=== PATIENT | male | born 1965 | race Caucasian/White ===

== ENCOUNTER 2018-03-11 12:09 | Inpatient (IN) ==
[2018-03-11] MEDS ORDERED: Ondansetron 4 MG/2 ML VIAL IVP ONE (12:23)
[2018-03-11] MEDS ORDERED: 0.9 % Sodium Chloride 1,000 ML IVC ONE (12:23)
[2018-03-11] MEDS ORDERED: Isovue-370 500 ML BOTTLE IVP ONE (12:23)
[2018-03-11] MEDS ORDERED: *HR* HYDROmorphone (PF) 1 MG/ML SYRINGE IVP ONE ×2 (12:23→13:56)
--- NOTE | 2018-03-11 12:28 | Emergency Department Note ---
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 Neutropenia Qualifiers: Neutropenia type: unspecified Qualified Code(s): D70.9 - Neutropenia, unspecified Disposition: Admitted As Inpatient Condition: Good Referrals: NONE,PCP [Primary Care Provider] - Time of Disposition: 13:55 General Adult HPI - General Stated complaint: Multiple complaints Time Seen by Provider: 03/11/18 12:18 Source: patient, family, EMS Mode of arrival: EMS Limitations: no limitations Nursing Notes Reviewed: Yes Vital Signs Reviewed: Yes - History of Present Illness HPI Narrative: 52 year old male [facility] Faj[facility]. Kimberly is currenlty being treated with chemotherapy for mestatic prostate cancer and states that he has not been able to drink or eat anything int he past 48 hours and that he feels incresingly more dehydrated. Kimberly states that his chemotherapy is not working ant that his cancer doctor sent him here for admission for pain crisis, and palliative care consult as they have been trying to get his pain crisis under control with pain management Dr. Harrell and it has not been helping. Kimberly is experingin adomianl swelling and pain over the one month and states that he was told it was likely his liver failing per his cancer doctor. Kimberly does not appear jaundiced at this time. He does however appear dehydrated and last urinated yesterday. No fvers, vomitting .but he has been experincing nausea. - Related Data Home Medications Medication Instructions Recorded Confirmed Cyanocobalamin (B-12) [Vitamin B12] 1,000 mcg IM QMONTH 08/31/17 03/10/18 OxyCODONE Immed Rel [Roxicodone 30 30 mg PO QID PRN 08/31/17 03/10/18 MG] Sennosides/Docusate Sodium [Stool 1 each PO DAILY 09/10/17 03/10/18 Softener Tablet] Previous Rx's Medication Instructions Recorded Ferrous Sulfate [Iron] 1 tab PO DAILY #30 tablet 03/27/17 Megestrol Acetate [Megace] 10 ml PO BID #400 mls 07/19/17 Albuterol Neb [AccuNeb] 1.25 mg IH BID #60 inhsol 10/29/17 Dexamethasone [Decadron] 2 tab PO BID #60 tab 10/29/17 Spironolactone [Aldactone] 25 mg PO DAILY #30 tablet 10/29/17 Bed - Hospital [Hospital Bed] 1 each .ROUTE AD #1 each 11/27/17 Supplies [SUPPLIES] 1 each .ROUTE DAILY #1 each 12/23/17 Supplies [SUPPLIES] 1 each .ROUTE DAILY #1 each 12/23/17 Prochlorperazine Maleate 10 mg PO Q6H PRN #30 tablet 02/06/18 [Compazine] Tamsulosin [Flomax] 1 tab PO BID #60 cap.er.24h 02/07/18 Apixaban [Eliquis] 5 mg PO BID #60 tablet 02/10/18 Ciprofloxacin [Cipro] 500 mg PO BID #10 tablet 03/03/18 Furosemide [Lasix] 40 mg PO DAILY #30 tablet 03/03/18 Omeprazole [PriLOSEC] 20 mg PO BIDAC #60 cap 03/03/18 Potassium Chloride 20 meq PO DAILY #30 tab.er.prt 03/03/18 metroNIDAZOLE [Flagyl] 500 mg PO TID #15 tablet 03/03/18 Dronabinol [Marinol] 5 mg PO BID 7 Days #14 capsule 03/10/18 Allergies Allergy/AdvReac Type Severity Reaction Status Date / Time No Known Allergies Allergy Verified 03/10/18 11:46 Constitutional: Reports: weakness. Denies: fever, chills, weight change Eyes: Denies: eye pain, eye discharge, vision change ENT ED: Denies: ear pain, throat pain, dental pain, hearing loss, epistaxis, congestion, dysphagia Cardiovascular: Denies: chest pain, palpitations, dyspnea on exertion, edema, syncope Respiratory: Denies: cough, dyspnea, wheezes, hemoptysis, stridor Gastrointestinal: Reports: abdominal pain, nausea. Denies: vomiting, diarrhea, constipation, hematemesis, melena, hematochezia Genitourinary: Denies: urgency, dysuria, frequency, hematuria Musculoskeletal: Denies: back pain, neck pain, arthralgia, myalgia Integumentary: Denies: rash, abrasion, lesions Neurological: Denies: headache, weakness, numbness, paresthesias, confusion, abnormal gait, vertigo Psychiatric: Denies: anxiety, depression, suicidal thoughts, homicidal thoughts, auditory hallucinations, visual hallucinations Endocrine: Denies: fatigue Hematological/Lymphatic: Denies: easy bleeding, easy bruising Allergic/Immunologic: Denies: facial swelling, urticaria Past Medical History - Past Medical History Medical history: Reports: cancer Surgical history: Reports: non-contributory Psychiatric history: Reports: no psych history - Social History Smoking Status: Current every day smoker Smokeless Tobacco Status: No Alcohol use: Reports: none Drug use: Reports: none Physical Exam - General Limitations: no limitations General appearance: alert, in no apparent distress - Head Head exam: atraumatic, normocephalic, normal inspection - Eye Eye exam: Present: normal appearance, PERRL, EOMI - Expanded Eye Exam Pupils: Bilateral: reactive - ENT ENT exam: normal exam, normal oropharynx, mucous membranes moist - Expanded ENT Exam External ear exam: Present: normal external inspection Mouth exam: Present: normal external inspection Teeth exam: Present: normal inspection Throat exam: Present: normal inspection - Neck Neck exam: Present: normal inspection, full ROM, trachea midline - Chest Chest inspection: Present: normal inspection, symmetric chest wall rise - Respiratory Respiratory exam: Present: normal lung sounds bilaterally - Cardiovascular Cardiovascular exam: Present: regular rate, normal rhythm, normal heart sounds - Abdominal Exam Abdominal exam: Present: soft, tenderness, distention (mild). Absent: Non- Tender, guarding, rebound, rigidity Abdominal tenderness: Present: diffuse, mild - Extremities Exam Extremities exam: Present: normal inspection, full ROM. Absent: tenderness, pedal edema - Expanded Upper Extremity Exam Shoulder exam: Present: normal inspection, full ROM Arm exam: Present: normal inspection, full ROM Elbow exam: Present: normal inspection, full ROM Forearm/Wrist exam: Present: normal inspection, full ROM Hand exam: Present: normal inspection, full ROM Vascular exam: Normal: capillary refill, radial pulse - Expanded Lower Extremity Exam Hip/Pelvis exam: Present: normal inspection, full ROM Upper leg exam: Present: normal inspection, full ROM Knee exam: Present: normal inspection, full ROM Lower leg exam: Present: normal inspection, full ROM Ankle exam: Present: normal inspection, full ROM Foot/toe exam: Present: normal inspection, full ROM Neurovascular/Tendon exam: Absent: motor deficit, sensory deficit, tendon deficit - Back Exam Back exam: Present: normal inspection, full ROM. Absent: tenderness - Neurological Exam Neurological exam: Present: alert, oriented X3 - Expanded Neurological Exam Patient oriented to: Present: person, place, time Coma Scale Eye Opening: Spontaneous Coma Scale Motor Response: Obeys Commands Coma Scale Verbal Response: Oriented Coma Scale Total: 15 - Psychiatric Psychiatric exam: Present: normal affect, normal mood - Skin Skin exam: Present: warm, dry, intact, normal color Course Course Narrative: I will do abdominal CT with IV therapy and labs to assess. Pain crisis will be treated with dilaudid and I pplan to admit patine to medicine for palliative consult and intractable pain - Reevaluation(s) Reevaluation #1: updated patinet on results. We will admit ot medicine for neutropenia and intactable pain and palliative consult. Time: 13:52 - Consultations Consultation #1: discussed case wiht Dr. medina and he accepts patinet to his service Time: 13:55 Vital Signs Temperature 98.3 F 03/11/18 12:24 Pulse Rate 94 03/11/18 12:24 Respiratory Rate 14 03/11/18 12:24 Blood Pressure 123/84 03/11/18 12:24 O2 Sat by Pulse Oximetry 98 03/11/18 12:24 Temperature 98.3 F 03/11/18 12:24 Pulse Rate 94 03/11/18 12:24 Respiratory Rate 14 03/11/18 12:24 Blood Pressure 123/84 03/11/18 12:24 O2 Sat by Pulse Oximetry 97 03/11/18 13:01 Oxygen Delivery Oxygen Delivery Room Air Medical Decision Making - Medical Records Medical records reviewed: Yes I reviewed the patient's medical records. - Lab Data Lab results reviewed: Yes I reviewed the patient's lab results. Result diagrams: 03/11/18 12:23 03/11/18 12:23 Lab Results 03/11/18 03/11/18 03/11/18 Range/Units 12:23 12:23 12:23 WBC 1.0 L* (4.3-11.1) K/mcL RBC 3.84 L (4.19-5.50) M/mcL Hgb 11.7 L (12.9-16.9) g/dL Hct 35.9 L (37.5-50.1) % MCV 93.5 (83.0-100.0) fL MCH 30.5 (28.0-33.3) pg MCHC 32.6 (31.6-35.5) g/dL RDW 17.4 H (11.5-14.5) % Plt Count 223 (140-400) K/mcL MPV 10.0 (9.4-12.4) fL Immature Gran % 2.0 (0-4) % Seg Neutrophils % 28.6 % Lymphocytes % 44.9 % Monocytes % 21.4 % Eosinophils % 0.0 % Basophils % 3.1 % Neutrophils # 0.3 L (1.6-8.9) K/mcL Lymphocytes # 0.5 L (0.6-4.6) K/mcL Monocytes # 0.2 (0.0-1.3) K/mcL Eosinophils # 0.0 (0.0-0.6) K/mcL Basophils # 0.0 (0.0-0.2) K/mcL Platelet Estimate Normal (Normal) Anisocytosis 1+ A (Not Present) PT 13.6 H (9.4-12.1) Seconds INR 1.2 APTT 29.8 (26.0-36.0) Seconds Sodium 135 L (136-145) mEq/L Potassium 3.8 (3.5-5.1) mEq/L Chloride 109 H (98-107) mEq/L Carbon Dioxide 20 L (23-29) mEq/L BUN 15 (6-20) mg/dL Creatinine 0.91 (0.70-1.30) mg/dL Est GFR ( Amer) > 60 (> 60) Est GFR (Non-Af Amer) > 60 (> 60) BUN/Creatinine Ratio 16 (6-26) Glucose 107 H (70-105) mg/dL Calculated Osmolality 281 (280-300) Lactic Acid (0.5-2.2) mmol/L Calcium 8.0 L (8.6-10.3) mg/dL Total Bilirubin 0.3 (0.3-1.0) mg/dL Direct Bilirubin 0.1 (0.0-0.2) mg/dL Indirect Bilirubin 0.2 (0.0-1.2) mg/dL AST 12 L (13-39) Units/L ALT 10 (7-52) Units/L Alkaline Phosphatase 49 (34-104) Units/L Troponin I < 0.03 (< 0.04) ng/mL Serum Total Protein 6.5 (6.4-8.9) g/dL Albumin 4.1 (3.5-5.7) g/dL Globulin 2.4 (2.4-3.5) g/dL Albumin/Globulin Ratio 1.7 (1.1-2.2) Lipase 5 L (11-82) Units/L Urine Color (Yellow) Urine Clarity (Clear) Urine pH (5.0-8.0) pH Units Ur Specific [place] (1.010-1.025) Urine Protein (Neg-Trace) mg/dL Urine Glucose (UA) (Normal) mg/dL Urine Ketones (Negative) mg/dL Urine Blood (Negative) Urine Nitrite (Negative) Urine Bilirubin (Negative) Urine Urobilinogen (Normal) mg/dL Ur Leukocyte Esterase (Negative) Ur Culture Indicated? (NO) 03/11/18 03/11/18 Range/Units 12:34 13:24 WBC (4.3-11.1) K/mcL RBC (4.19-5.50) M/mcL Hgb (12.9-16.9) g/dL Hct (37.5-50.1) % MCV (83.0-100.0) fL MCH (28.0-33.3) pg MCHC (31.6-35.5) g/dL RDW (11.5-14.5) % Plt Count (140-400) K/mcL MPV (9.4-12.4) fL Immature Gran % (0-4) % Seg Neutrophils % % Lymphocytes % % Monocytes % % Eosinophils % % Basophils % % Neutrophils # (1.6-8.9) K/mcL Lymphocytes # (0.6-4.6) K/mcL Monocytes # (0.0-1.3) K/mcL Eosinophils # (0.0-0.6) K/mcL Basophils # (0.0-0.2) K/mcL Platelet Estimate (Normal) Anisocytosis (Not Present) PT (9.4-12.1) Seconds INR APTT (26.0-36.0) Seconds Sodium (136-145) mEq/L Potassium (3.5-5.1) mEq/L Chloride (98-107) mEq/L Carbon Dioxide (23-29) mEq/L BUN (6-20) mg/dL Creatinine (0.70-1.30) mg/dL Est GFR ( Amer) (> 60) Est GFR (Non-Af Amer) (> 60) BUN/Creatinine Ratio (6-26) Glucose (70-105) mg/dL Calculated Osmolality (280-300) Lactic Acid 0.7 (0.5-2.2) mmol/L Calcium (8.6-10.3) mg/dL Total Bilirubin (0.3-1.0) mg/dL Direct Bilirubin (0.0-0.2) mg/dL Indirect Bilirubin (0.0-1.2) mg/dL AST (13-39) Units/L ALT (7-52) Units/L Alkaline Phosphatase (34-104) Units/L Troponin I (< 0.04) ng/mL Serum Total Protein (6.4-8.9) g/dL Albumin (3.5-5.7) g/dL Globulin (2.4-3.5) g/dL Albumin/Globulin Ratio (1.1-2.2) Lipase (11-82) Units/L Urine Color Yellow (Yellow) Urine Clarity Clear (Clear) Urine pH 6.0 (5.0-8.0) pH Units Ur Specific [place] 1.014 (1.010-1.025) Urine Protein Negative (Neg-Trace) mg/dL Urine Glucose (UA) Normal (Normal) mg/dL Urine Ketones Negative (Negative) mg/dL Urine Blood Negative (Negative) Urine Nitrite Negative (Negative) Urine Bilirubin Negative (Negative) Urine Urobilinogen Normal (Normal) mg/dL Ur Leukocyte Esterase Negative (Negative) Ur Culture Indicated? NO (NO) - Radiology Data Radiology results reviewed: Yes I reviewed the patient's radiology results. - EKG Data EKG #1 EKG attestation: Yes I reviewed and interpreted this EKG. EKG results narrative: NSR with rate of 89. NO STEMI. short PA interval. no change from 01/30/16. [id number]
[2018-03-11 12:49] LABS: Monocytes % 21.4 %
[2018-03-11 12:50] LABS: Basophils % 3.1 %; Hematocrit 35.9 % (37.5-50.1); Hemoglobin 11.7 g/dL (12.9-16.9); Lymphocytes % 44.9 %; Mean Corpuscular HGB Conc 32.6 g/dL (31.6-35.5); Mean Corpuscular Hemoglobin 30.5 pg (28.0-33.3); Mean Corpuscular Volume 93.5 fL (83.0-100.0); Monocytes # 0.2 K/mcL (0.0-1.3); Neutrophils # 0.3 K/mcL (1.6-8.9); Platelet Count 223 K/mcL (140-400); Red Blood Count 3.84 M/mcL (4.19-5.50); Red Cell Distribution Width 17.4 % (11.5-14.5); Segmented Neutrophils % 28.6 %
[2018-03-11 12:54] LABS: Lymphocytes # 0.5 K/mcL (0.6-4.6)
[2018-03-11 13:07] LABS: Troponin I < 0.03 ng/mL (< 0.04)
[2018-03-11 13:08] LABS: Alanine Aminotransferase 10 Units/L (7-52); Albumin 4.1 g/dL (3.5-5.7); Albumin/Globulin Ratio 1.7 (1.1-2.2); Alkaline Phosphatase 49 Units/L (34-104); Aspartate Amino Transferase 12 Units/L (13-39); BUN/Creatinine Ratio 16 (6-26); Bilirubin,Direct 0.1 mg/dL (0.0-0.2); Bilirubin,Indirect 0.2 mg/dL (0.0-1.2); Bilirubin,Total 0.3 mg/dL (0.3-1.0); Blood Urea Nitrogen 15 mg/dL (6-20); Carbon Dioxide 20 mEq/L (23-29); Chloride 109 mEq/L (98-107); Globulin 2.4 g/dL (2.4-3.5); Glucose 107 mg/dL (70-105); Lipase 5 Units/L (11-82); Osmolality,Calculated 281 (280-300); Potassium 3.8 mEq/L (3.5-5.1); Sodium 135 mEq/L (136-145); Total Protein 6.5 g/dL (6.4-8.9); eGFR For Non-African Americans > 60 (> 60)
[2018-03-11 13:25] LABS: INR 1.2; Prothrombin Time 13.6 Seconds (9.4-12.1)
[2018-03-11 13:26] LABS: Anisocytosis 1+ (Not Present); Platelet Estimate Normal (Normal)
[2018-03-11 13:28] LABS: Activated Partial Thrombo Time 29.8 Seconds (26.0-36.0)
[2018-03-11 13:42] LABS: Bilirubin,Urine Negative (Negative); Blood,Urine Negative (Negative); Clarity,Urine Clear (Clear); Color,Urine Yellow (Yellow); Glucose,Urine (UA) Normal (Normal); Ketones,Urine Negative (Negative); Leukocyte Esterase,Urine Negative (Negative); Nitrite,Urine Negative (Negative); Protein,Urine Negative (Neg-Trace); Specific Gravity,Urine 1.014 (1.010-1.025); Urobilinogen,Urine Normal (Normal)
[2018-03-11] MEDS ORDERED: Naloxone 0.4 MG/ML INJ IVP PRN (14:59)
--- NOTE | 2018-03-11 15:09 | Internal Med History&Physical ---
<Carmelina Calvin P - Last Filed: 03/11/18 17:28> Date of Encounter: 03/11/18 Time of Encounter: 02:30 Internal Medicine - H&P: HPI Chief complaint: Post chemotheraphy ,diarrhoea,nausea ,dehydration and weakness Admitted From: Emergency Dept Plans for Post Hospital Care: Hospice - Home History of present illness: Mr. Bernstein is a 52 year old male with metastatic Prostate cancer who is currently being treated with chemotherapy for metastatic process cancer presented to ED for generalized weakness, feeling nauseated,pain abdomen & distention. He further stated that he is not eating well and unable to drink for last couple of days. He admitted nausea time but he does not throw up. He denies any fever with chills, chest pain, cough,and vomiting, jaundice syncope, or trauma. He further stated that he was on 2 antibiotics from oncologist for last [address] abdomen done in ED showed : No significant change in right pelvic and right retroperitoneal adenopathy. Mild right hydronephrosis, slightly increased. No obstructing stone visualized. Right ureter is dilated to the level of the distal right common iliac artery without a definite obstructing lesion visualized.Hepatic metastatic disease is unchanged. CT abdomen and pelvis with contrast 02/28/2018 showed new hepatic metastatic disease. 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 The patient is not febrile; temperature 98.3,, pulse 83, blood pressure 120/76, sat 99% . Labs at ED: WBC ;1.0, Neutrophil 0.3,Hb 11.7,sodium 135, K 3.8 , urine analysis : no infection.We are going to admit him with precaution for Neutropenia and workup for source of infection and monitoring for developing sepsis 5 Past Med Surg Social Fam HX - Past Medical History Medical history: cancer Additional medical history: Pt has prostate cancer w/ mets to liver Psychiatric history: no psych history - Past Surgical History Surgical History: non-contributory Additional surgical history: biopsy, clean heart cath - Social History Smoking Status: Current every day smoker Smokeless Tobacco Status: No Alcohol use: none Drug use: none Internal Medicine - H&P: Meds RX: Cyanocobalamin (B-12) [Vitamin B12] 1,000 mcg IM QMONTH 07/21/18 [History] RX: OxyCODONE Immed Rel [Roxicodone 30 MG] 30 mg PO QID PRN 08/31/17 [History] Prochlorperazine Maleate [Compazine] 10 mg PO Q6H PRN #30 tablet 02/06/18 [Rx] RX: Tamsulosin [Flomax] 1 tab PO BID #60 cap.er.24h 02/07/18 [Rx] Apixaban [Eliquis] 5 mg PO BID #60 tablet 02/10/18 [Rx] RX: Furosemide [Lasix] 40 mg PO DAILY #30 tablet 03/03/18 [Rx] RX: Omeprazole [PriLOSEC] 20 mg PO BIDAC #60 cap 03/03/18 [Rx] RX: Potassium Chloride 20 meq PO DAILY #30 tab.er.prt 03/03/18 [Rx] Dronabinol [Marinol] 5 mg PO BID 03/11/18 [History] RX: Albuterol Neb [AccuNeb] 1.25 mg IH BID PRN 03/11/18 [History] RX: Trazodone HCl 150 mg PO HS 03/11/18 [History] predniSONE [PredniSONE] 5 mg PO BID 03/11/18 [History] Allergy/AdvReac Type Severity Reaction Status Date / Time No Known Allergies Allergy Verified 03/10/18 11:46 All Systems PM: A 10-system review of systems was performed and is negative for pertinent findings except as documented above in the HPI. - Constitutional Constitutional: anorexia, lethargy, weakness, weight loss, no chills, no excessive sweating, no fever(s), no night sweats, no weight gain - EENT Eyes: loss of vision, pain, no blurry vision, no decreased night vision Nose, mouth and throat: dry mouth, dysphagia, mouth pain, sore throat, no hoarseness, no lip swelling, no nasal congestion, no tongue swelling - Cardiovascular Cardiovascular ROS IM: lightheadedness, no chest pain, no diaphoresis, no orthopnea - Respiratory Respiratory: no cough, no dyspnea, no hemoptysis, no pain on inspiration, no chest congestion - Gastrointestinal Gastrointestinal: diarrhea, heartburn, loose stools, nausea, no abdominal pain, no excessive flatus, no hematemesis, no tenesmus, no vomiting - Genitourinary Genitourinary ROS male: no difficulty urinating, no flank pain, no nocturia, no scrotal swelling, no testicular mass, no urinary frequency - Musculoskeletal Musculoskeletal ROS IM: muscle cramps, no arthralgias, no limited range of motion, no numbness, no stiffness, no tingling - Integumentary Integumentary IM: no unusual bruising, no jaundice - Neurological Neurological ROS: weakness, no abnormal gait, no abnormal movements, no abnormal speech, no confusion, no convulsions, no dizziness, no loss of vision, no paresthesias, no radicular pain, no restless legs - Psychiatric Psychiatric: anhedonia, anxiety, no abnormal sleep pattern, no auditory hallucinations, no confusion, no depression, no hallucinations, no homicidal ideation, no panic attacks, no suicidal ideation - Endocrine Endocrine IM: no cold intolerance, no flushing, no heat intolerance, no polyphagia, no polyuria - Hematologic/Lymphatic Hematologic/Lymphatic: no easy bleeding, no easy bruising, no lymphadenopathy - Allergic/Immunologic Allergic/Immunologic: no tongue swelling, no wheezing, no lip swelling - Constitutional Vitals: Temp Pulse Resp BP Pulse Ox 98.3 F 83 18 120/76 99 03/11/18 12:24 03/11/18 14:12 03/11/18 14:12 03/11/18 14:12 03/11/18 14:12 General appearance: Present: A&O X 3, no acute distress, answers questions appr opriately Exam: Gen: Alert, awake , Oriented to time,place and person : dehydration ++, Oral thrush + Chest: Diminished BS b/l, No crackles, No rales, No wheezing Heart: S1S2+ RRR No Murmurs Abd: Soft, BS + No organomegaly, mildly distended, slightly tender at LLQ Ext: No edema, pulses are palpable, no tenderness Neuro: No focal neuro deficits Psych: Normal mood Skin: No rash Internal Med - H&P Results - Labs CBC & Chem 7: 03/11/18 12:23 03/11/18 12:23 Labs: Short CBC 03/11/18 Range/Units 12:23 WBC 1.0 L* (4.3-11.1) K/mcL Hgb 11.7 L (12.9-16.9) g/dL Hct 35.9 L (37.5-50.1) % Plt Count 223 (140-400) K/mcL Neutrophils # 0.3 L (1.6-8.9) K/mcL BMP 03/11/18 12:23 Sodium 135 L Potassium 3.8 Chloride 109 H Carbon Dioxide 20 L BUN 15 Creatinine 0.91 Glucose 107 H Calcium 8.0 L Cardiac Enzymes 03/11/18 Range/Units 12:23 Troponin I < 0.03 (< 0.04) ng/mL Liver Function 03/11/18 Range/Units 12:23 Total Bilirubin 0.3 (0.3-1.0) mg/dL Direct Bilirubin 0.1 (0.0-0.2) mg/dL AST 12 L (13-39) Units/L ALT 10 (7-52) Units/L Alkaline Phosphatase 49 (34-104) Units/L Albumin 4.1 (3.5-5.7) g/dL Urine 03/11/18 Range/Units 13:24 Urine Color Yellow (Yellow) Urine Clarity Clear (Clear) Urine pH 6.0 (5.0-8.0) pH Units Ur Specific [place] 1.014 (1.010-1.025) Urine Protein Negative (Neg-Trace) mg/dL Urine Glucose (UA) Normal (Normal) mg/dL - Impressions ITS Impressions Abdomen/Pelvis CT 03/11/18 12:23 IMPRESSION: No significant change in right pelvic and right retroperitoneal adenopathy. Mild right hydronephrosis, slightly increased. No obstructing stone visualized. Right ureter is dilated to the level of the distal right common iliac artery without a definite obstructing lesion visualized. Hepatic metastatic disease is unchanged. D/ / Dionne Vega MD / Dionne Vega MD Interpreting Provider: Dionne Vega MD - Assessment and plan (1) Neutropenia Current Visit: Yes Status: Acute Assessment and plan: This is a patient of metastatic prostate cancer under chemotherapy treatment White count 1.0 and Neutrophil 0.3 (ANC 286) , no fever ,may be post chemo induced neutropenia , but looking for source of infection a We have ordered; blood culture, urine culture , GI viral pannel,C diff,CXR,Urinalysis We haven't given antibiotics as he is not febrile, Tem 98.3, Pul 83 and respiration 18, Blood pressure 120/76 we will closely monitor for impending sepsis. We have started IV fluid and ordered physical precaution for neutropenia. Qualifiers: Neutropenia type: secondary to cancer chemotherapy Qualified Code(s): D70.1 - Agranulocytosis secondary to cancer chemotherapy; T45.1X5A - Adverse effect of antineoplastic and immunosuppressive drugs, initial encounter (2) Prostate cancer metastatic to liver Current Visit: Yes Status: Acute Assessment and plan: This is apatient with Advanced prostate cancer with multiple metastasis , under chemotherapy. CT abdomen and pelvis with contrast 02/28/2018 showed new hepatic metastatic disease with retroperitoneal and pelvic adenopathy, Rent MRI head : negative for intracranial lesion other than a skull bone metastasis. He is under oncologist follow-up in outpatient We have counselled him regarding comfort care /palliative care The patient and pt family has been positive to go for comfort care- home hospice IV pain medication for comfort : dilaudid 1mg IV [id number] Onco- team on board. (3) Oral thrush Current Visit: Yes Status: Acute Assessment and plan: The patient has white he states patch in his mouth and oropharynx He has trouble with eating We have ordered Nystanin antifungal suspension Samoan and swallow (4) Esophagitis Current Visit: Yes Status: Acute Assessment and plan: The patient has problem with swallowing Thursh/candidiasis present in oropharynx Dysphagia might be due to fungal infection / candidiasis Will discuss the plan with oncologist for Antifungal Rx (5) Abdominal pain Current Visit: Yes Status: Acute Assessment and plan: The patient has generalized mild abdominal pain, distension with frequent loses stool, feeling nauseated, belching CT abdomen and pelvis: Did not show any acute pathology or obstruction He is on PPI Qualifiers: Abdominal location: generalized Qualified Code(s): R10.84 - Generalized abdominal pain (6) Acute diarrhea Current Visit: Yes Status: Acute Assessment and plan: The patient stated that he has frequent loose stool Oncologist put on 2 antibiotics for loose stool and distended abdomen He is still taking antibiotics for his diarrhea as per onco advise Dr Villeda We will discuss with oncologist for further continuation of antibiotics. He has some sign of dehydration He is on IV hydration (7) DVT (deep venous thrombosis) Current Visit: Yes Status: Acute Assessment and plan: The patient has history of DVT He was on Eliquis 5 mg BID , we have resumed it. Qualifiers: Laterality: unspecified laterality Qualified Code(s): I82.409 - Acute embolism and thrombosis of unspecified deep veins of unspecified lower extremity (8) Physical deconditioning Current Visit: Yes Status: Acute Assessment and plan: This patient with advanced multiple metastatic prostate cancer under chemotherapy We have consulted for palliative care/hospice at home We have counseled for pain medication/ Narcotics for comfort care (9) Hydronephrosis Current Visit: Yes Status: Acute Assessment and plan: He has Rt sided mild hydronephrosis with out any sign of Infection, due to outside Compression from Tumour/ LN No obstructing stone found in CT abdomen No acute intervention Observe Qualifiers: Hydronephrosis type: unspecified Qualified Code(s): N13.30 - Unspecified hydronephrosis - Time Spent With Patient Total time spent is greater than 50% in coordination of care (as documented) at patient's floor/unit and/or counseling patient: <Lolly Loomis - Last Filed: 03/12/18 09:59> Date of Encounter: 03/11/18 Internal Medicine - H&P: HPI History of present illness: Mr. Bernstein is a 52 year old male All Systems PM: A 10-system review of systems was performed and is negative for pertinent findings except as documented above in the HPI. - Constitutional Vitals: Temp Pulse Resp BP Pulse Ox 98.3 F 83 18 120/76 99 03/11/18 12:24 03/11/18 14:12 03/11/18 14:12 03/11/18 14:12 03/11/18 14:12 Internal Med - H&P Results - Labs CBC & Chem 7: 03/12/18 04:57 03/12/18 04:57 Labs: Short CBC 03/11/18 Range/Units 12:23 WBC 1.0 L* (4.3-11.1) K/mcL Hgb 11.7 L (12.9-16.9) g/dL Hct 35.9 L (37.5-50.1) % Plt Count 223 (140-400) K/mcL Neutrophils # 0.3 L (1.6-8.9) K/mcL BMP 03/11/18 12:23 Sodium 135 L Potassium 3.8 Chloride 109 H Carbon Dioxide 20 L BUN 15 Creatinine 0.91 Glucose 107 H Calcium 8.0 L Cardiac Enzymes 03/11/18 Range/Units 12:23 Troponin I < 0.03 (< 0.04) ng/mL Liver Function 03/11/18 Range/Units 12:23 Total Bilirubin 0.3 (0.3-1.0) mg/dL Direct Bilirubin 0.1 (0.0-0.2) mg/dL AST 12 L (13-39) Units/L ALT 10 (7-52) Units/L Alkaline Phosphatase 49 (34-104) Units/L Albumin 4.1 (3.5-5.7) g/dL Urine 03/11/18 Range/Units 13:24 Urine Color Yellow (Yellow) Urine Clarity Clear (Clear) Urine pH 6.0 (5.0-8.0) pH Units Ur Specific [place] 1.014 (1.010-1.025) Urine Protein Negative (Neg-Trace) mg/dL Urine Glucose (UA) Normal (Normal) mg/dL - Impressions ITS Impressions Abdomen/Pelvis CT 03/11/18 12:23 IMPRESSION: No significant change in right pelvic and right retroperitoneal adenopathy. Mild right hydronephrosis, slightly increased. No obstructing stone visualized. Right ureter is dilated to the level of the distal right common iliac artery without a definite obstructing lesion visualized. Hepatic metastatic disease is unchanged. D/ / Dionne Vega MD / Dionne Vega MD Interpreting Provider: Dionne Vega MD - Time Spent With Patient Total time spent is greater than 50% in coordination of care (as documented) at patient's floor/unit and/or counseling patient: - Attending Attestation I examined this patient and my medical decision-making was reviewed with the Resident Physician Dr. Calvin. I agree with the documented findings, disposition and treatment plan as described except to the extent set forth below Mr. Bernstein is a 52 y/o M with known PMH of metastatic pancreatic cancer who have been having profuse watery diarrhea, severe neutropenia, dysphagia pt who was started on Cipro and Flagyl prophylactically for diarrhea by Heme Onc , now he presented to the emergency room with worsening weakness, lethargic and fatigue. He seems to be having severe neutropenia now with ANC at 286. He denied any fever / chills. He does complaining about difficulty to sallow/dysphagia. Gen: A, A, O x3 Chest: Diminished BS b/l, no crckles no rales Abd: Soft, NT, BS+ Ext: trace edema HEENT: Oral thrush a.p 1. Severe neutropenia - mostly chemo induced and cancer related 2. Acute diarrhea 3. Severe physical deconditioning 4. Metastatic prostate cancer 5. Lower back pain due to metastatic disease placed him on neutropenia precautions patient and family requested for DNR DNI will check blood cultures, urine culture, stool cx GI panel no need to start him on antibiotic yet since patient is afebrile monitoring symptoms closely for his dysphagia concerning for vidhi esophagitis started him on nystatin solution Consulted Heme Onc for further eval Consulted palliative care team for further evaluation
[2018-03-11] MEDS ORDERED: Ondansetron 4 MG/2 ML VIAL IVP PRN (15:19)
--- NOTE | 2018-03-11 16:59 | Oncology Inp Consult Note ---
<Preeti Villeda S - Last Filed: 03/12/18 08:32> Date of Encounter: 03/11/18 - Data of Consult Requesting Physician: Rosales Yan MD Primary Care Provider: PCP NONE Past Med Surg Social Fam HX - Family History Father History Unknown: Yes Mother Living Status: Age at : 70 Cause of : OR Hx Family Cardiac Disorders: Yes Hx Family Respiratory Disorders: No Hx Family Cancer: Yes Hx Family GI Disorders: No Hx Family Genitourinary Disorders: No Hx Family Endocrine Disorder: Yes Hx Family Musculoskeletal Disorders: No Hx Family Neuromuscular Disorders: No Hx Family Neurologic Disorders: No Hx Family HEENT Disorders: No Hx Family Autoimmune Disorders: No Hx Family Reproductive Disorders: No Hx Family Psychosocial Disorders: No Hx Family Medical Disorders: No Medications and Allergies RX: Cyanocobalamin (B-12) [Vitamin B12] 1,000 mcg IM QMONTH 08/31/17 [History] RX: OxyCODONE Immed Rel [Roxicodone 30 MG] 30 mg PO QID PRN 08/31/17 [History] Prochlorperazine Maleate [Compazine] 10 mg PO Q6H PRN #30 tablet 02/06/18 [Rx] RX: Tamsulosin [Flomax] 1 tab PO BID #60 cap.er.24h 02/07/18 [Rx] Apixaban [Eliquis] 5 mg PO BID #60 tablet 02/10/18 [Rx] RX: Furosemide [Lasix] 40 mg PO DAILY #30 tablet 03/03/18 [Rx] RX: Omeprazole [PriLOSEC] 20 mg PO BIDAC #60 cap 03/03/18 [Rx] RX: Potassium Chloride 20 meq PO DAILY #30 tab.er.prt 03/03/18 [Rx] Dronabinol [Marinol] 5 mg PO BID 03/11/18 [History] RX: Albuterol Neb [AccuNeb] 1.25 mg IH BID PRN 03/11/18 [History] RX: Trazodone HCl 150 mg PO HS 03/11/18 [History] predniSONE [PredniSONE] 5 mg PO BID 03/11/18 [History] Allergy/AdvReac Type Severity Reaction Status Date / Time No Known Allergies Allergy Verified 03/10/18 11:46 Consult Discharge Plan - Plan Referrals: Morteza Daily Jr, MAKE UP OPERATOR [Advanced Practice Nurse] - NONE,PCP [Primary Care Provider] - Inpatient Charges Provider: Dr. Mary Villeda Consult - Inpatient: [id number] - Attending Attestation I examined this patient and my medical decision-making was reviewed with the Advanced Practice Nurse. I agree with the documented findings, disposition and treatment plan as described except to the extent set forth below. 1. Castrate resistant metastatic prostate cancer. He progressed on Abiraterone and Enzalutamide. Currently on Taxotere with prednisone 5 mg twice a day. He initially had a good response with PSA cornelia around 5 on January 2018 Since then he has evidence of progression PSA continued to rise slowly to recent value 12.8 on 03/03/2018 Completed cycle 11 on 03/03/2018. Currently is neutropenic with neutrophil count 300. Expected neutropenia to improve in the next 3-5 days. If he does NEUTROPENIC problems or sepsis may consider Neupogen area Discussed with him and in detail. Will stop Taxotere. If his general condition improves and if he wants treatment may consider Cabzitaxel 2. Hospitalized with intractable pain mainly in the lower back. Also nausea vomiting and clinical dehydration. Also diarrhea. His creatinine is normal currently 0.9. Currently on oxycodone 30 mg every 6 when necessary and Dilaudid 1 mg IV every hour when necessary. Consider adding long-acting pain medication tomorrow 3. History of DVT continue Elequis 5 mg twice a day 4. Pernicious anemia. B12 level improved with B12 supplementation. Current level CD 11/19/2017. Current hemoglobin 11.7 <Elayne Hughes L - Last Filed: 03/12/18 10:52> Date of Encounter: 03/11/18 Time of Encounter: 16:56 Assessment and Plan (1) Acute diarrhea Status: Acute Assessment and plan: Treated as outpatient with Cipro and Flagyl Stool GI. panel culture and C. difficile pending, further recommendations to follow Continue zofran for nausea, denies vomiting (2) DVT prophylaxis Status: Acute Assessment and plan: History of left lower extremity DVT, continue Eliquis (3) Intractable pain Status: Acute Assessment and plan: Reports diffuse pain as well as right upper quadrant abdominal pain He has seen pain management through Dr. Harrell as outpatient and previously taking oxycodone 30 mg by mouth every 8 hours as needed, working through the logistics of starting MS Iman as outpatient and apparently had issues with insurance approval and co-pay Plan: Palliative care consulted He currently has a medication oxycodone continued in addition to IV Dilaudid for breakthrough pain Anticipate starting long-acting formulation tomorrow after we evaluate use of breakthrough meds (4) Neutropenia Status: Acute Assessment and plan: WBC count 1, ANC 300 Likely secondary to cornelia status post last cycle of Taxotere on 03/03/2017 No reports of subjective fevers, afebrile since admission Plan: Neutropenic Precautions Continue to monitor fever trend and re-hill culture for fever Recommend hill culture now, blood cultures obtained and pending, stool GI panel ordered, chest x-ray ordered, UA ordered Currently no indication for antibiotic therapy, no role for Neupogen at this time Qualifiers: Neutropenia type: secondary to cancer chemotherapy Qualified Code(s): D70.1 - Agranulocytosis secondary to cancer chemotherapy; T45.1X5A - Adverse effect of antineoplastic and immunosuppressive drugs, initial encounter (5) Oral thrush Status: Acute Assessment and plan: Started on nystatin Appears to be more consistent with mucositis, will start magic mouthwash (6) Prostate cancer metastatic to liver Status: Acute Assessment and plan: Prostate cancer initially diagnosed in June 2014. Currently metastatic disease with the right external iliac adenopathy and progressive retroperitoneal adenopath. He has progressed on Abiraterone and Enzalutamide. Pembrolizumab declined by insurance. He was evaluated at the [facility] around 07/18/2017 and may be a candidate for randomized phase 2 study if he has progression on current treatment. He continues on Lupron and denosumab. Current treatment includes palliative intent Taxotere with prednisone 5 mg twice a day, cycle repeated every 3 weeks, he is status post cycle #11 on 03/03/2017. At this visit Dr. Villeda also discussed restaging scan results with patient and his . CT abdomen and pelvis with contrast 02/28/2018 showed new hepatic metastatic disease. Mild improvement in retroperitoneal and pelvic adenopathy. Persistent right hydronephrosis possibly secondary to ureteral stricture. At that time, patient and patients wished to continue treatment, not agreeable to hospice. Plan: Patient agreeable to palliative care consultation for further recommendations of pain management He has been resistant to hospice discussions in the past Transitioned to DNR CCA DO NOT INTUBATE Goals of care and treatment options will continue to be an ongoing discussion - Data of Consult Patient: known to practice within the last 3 years Consult date: 03/11/18 Requesting Physician: Rosales Yan MD Primary Care Provider: PCP NONE - Consult Narrative Reason for consult: Prostate Cancer History of present illness: Mr. Bernstein is a 52 year old male in known patient of Dr. Villeda with history of prostate cancer initially diagnosed in June 2014. Currently metastatic disease with the right external iliac adenopathy and progressive retroperitoneal adenopath. He has progressed on Abiraterone and Enzalutamide. Pembrolizumab declined by insurance. He was evaluated at the [facility] around 07/18/2017 and may be a candidate for randomized phase 2 study if he has progression on current treatment. He continues on Lupron and did not know some lab. Current treatment includes palliative intent Taxotere with prednisone 5 mg twice a day, cycle repeated every 3 weeks, he is status post cycle #11 on 03/03/2017. At this visit Dr. Villeda also discussed restaging scan results with patient and his . CT abdomen and pelvis with contrast 02/28/2018 showed new hepatic metastatic disease. Mild improvement in retroperitoneal and pelvic adenopathy. Persistent right hydronephrosis possibly secondary to ureteral stricture. Bone scan 02/21/2018 showed increasing activity posterior right parietal bone otherwise negative. 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 He was planned for tumor board discussion. Presented on 2 recent occasions to the cancer center acutely ill and dehydrated with worsening diarrhea. Recently prescribed Cipro and Flagyl. Most recently presented to cancer clinic yesterday for dehydration and worsening pain. At that time he had declined to present to the ER despite our recommendation. He was given fluid boluses and IV Dilaudid. He was noted to be neutropenic and afebrile, neutropenic precautions were discussed. Hospice was introduced, patient and patient's not interested in pursuing hospice at this time and wished to continue to pursue further treatment. He presented to [facility] ED today for worsening abdominal pain, nausea and abdominal distention. CT of the abdomen and pelvis was obtained which did not reveal any acute abnormality to explain pain, No sig nificant change in right pelvic and right retroperitoneal adenopathy, Mild right hydronephrosis, slightly increased, Hepatic metastatic disease is unchanged. Noted to be neutropenic with ANC 300, remains afebrile. He has been admitted for symptom control and neutropenia. Past Med Surg Social Fam HX - Past Medical History Medical history: cancer Additional medical history: Pt has prostate cancer w/ mets to liver Psychiatric history: no psych history - Past Surgical History Surgical History: non-contributory Additional surgical history: biopsy, clean heart cath - Social History Smoking Status: Current every day smoker Smokeless Tobacco Status: No Alcohol use: none Drug use: none Constitutional: Present: anorexia, fatigue, weakness. Absent: chills, fever(s), frequent falls, night sweats, weight loss Eyes: Absent: change in vision Nose, mouth and throat: Absent: dysphagia, odynophagia Cardiovascular: Absent: chest pain, irregular heart rhythm, palpitations Respiratory: Present: dyspnea on exertion. Absent: hemoptysis Gastrointestinal: Present: abdominal pain, diarrhea, nausea. Absent: hematemesis, hematochezia, melena, vomiting Genitourinary: Absent: dysuria, hematuria Musculoskeletal: Present: muscle weakness Integumentary: Absent: rash, wounds Neurological: Absent: focal weakness, frequent falls Psychiatric: Present: as per HPI Endocrine: Present: as per HPI Hematologic/Lymphatic: Present: as per HPI Oncology - Exam - Constitutional General appearance: cooperative, no acute distress, no febrile - Head Head exam: Present: atraumatic - ENT ENT exam: Present: mucous membranes moist, normal oropharynx - Respiratory Respiratory exam: Present: decreased breath sounds, CTAB. Absent: respiratory distress - Cardiovascular Cardiovascular exam: Present: RRR, +S1, +S2 - GI/Abdominal GI/Abdominal exam: Present: normal bowel sounds, soft. Absent: guarding, rebound, tenderness - Extremities Exam Extremities exam: Present: normal inspection. Absent: calf tenderness - Neurological Exam Neurological exam: Present: alert, oriented X3, no focal deficits, strengths equal and symetr throughout - Psychiatric Psychiatric exam: Present: normal affect, normal mood - Skin Skin exam: Present: dry, intact, normal color, warm
[2018-03-11] MEDS: 0.9 % Sodium Chloride 1,000 ML IVC SCH (18:18)
[2018-03-11] MEDS: Nystatin SUSP 5 ML UD.LIQ PO SCH ×2 (18:18→19:59)
[2018-03-11 18:47] LABS: Bilirubin,Urine Negative (Negative); Blood,Urine Negative (Negative); Clarity,Urine Clear (Clear); Color,Urine Yellow (Yellow); Glucose,Urine (UA) Normal (Normal); Ketones,Urine Negative (Negative); Leukocyte Esterase,Urine Negative (Negative); Nitrite,Urine Negative (Negative); Protein,Urine Negative (Neg-Trace); Specific Gravity,Urine > 1.030 (1.010-1.025); Urobilinogen,Urine Normal (Normal)
[2018-03-11] MEDS: *HR* OxyCODONE Immed Rel 15 MG TABLET PO PRN (19:58)
[2018-03-11] MEDS: Apixaban 5 MG TABLET PO SCH (19:58)
[2018-03-11 20:20] LABS: Adenovirus Not Detected (Not Detect); Bordetella Pertussis Not Detected (Not Detect); Chlamydophila pneumoniae Not Detected (Not Detect); Coronavirus 229E Not Detected (Not Detect); Coronavirus HKU1 Not Detected (Not Detect); Coronavirus NL63 Not Detected (Not Detect); Coronavirus OC43 Not Detected (Not Detect); Human Metapneumovirus Not Detected (Not Detect); Human Rhinovirus/Enterovirus Not Detected (Not Detect); Influenza A Subtype 2009 H1 Not Detected (Not Detect); Influenza A Untypeable Not Detected (Not Detect); Influenza B Not Detected (Not Detect); Mycoplasma pneumoniae Not Detected (Not Detect); Parainfluenza Virus 1 Not Detected (Not Detect); Parainfluenza Virus 2 Not Detected (Not Detect); Parainfluenza Virus 3 Not Detected (Not Detect); Parainfluenza Virus 4 Not Detected (Not Detect); Respiratory Syncytial Virus Not Detected (Not Detect)
[2018-03-11] MEDS: *HR* HYDROmorphone 2 MG/ML SYRINGE IVP PRN (23:41)
[2018-03-12] MEDS: *HR* OxyCODONE Immed Rel 15 MG TABLET PO PRN ×4 (02:03→20:55)
[2018-03-12] MEDS: 0.9 % Sodium Chloride 1,000 ML IVC SCH ×2 (02:17→10:45)
[2018-03-12 05:19] LABS: Hemoglobin 10.2 g/dL (12.9-16.9)
[2018-03-12 05:20] LABS: Eosinophils % 0.9 %; Hematocrit 31.9 % (37.5-50.1); Lymphocytes # 0.6 K/mcL (0.6-4.6); Lymphocytes % 54.1 %; Mean Corpuscular Hemoglobin 30.3 pg (28.0-33.3); Mean Corpuscular Volume 94.7 fL (83.0-100.0); Mean Platelet Volume 9.7 fL (9.4-12.4); Monocytes # 0.3 K/mcL (0.0-1.3); Monocytes % 25.7 %; Platelet Count 197 K/mcL (140-400); Red Blood Count 3.37 M/mcL (4.19-5.50); Red Cell Distribution Width 17.2 % (11.5-14.5); Segmented Neutrophils % 16.5 %
[2018-03-12 05:21] LABS: Basophils % 2.8 %; Neutrophils # 0.2 K/mcL (1.6-8.9)
[2018-03-12 05:22] LABS: Adenovirus F 40/41 PCR Not detected (Not detect); Astrovirus PCR Not detected (Not detect); C.difficile Toxin A/B Gene PCR Not detected (Not detect); Campylobacter by PCR Not detected (Not detect); Cryptosporidium by PCR Not detected (Not detect); Cyclospora cayetanensis PCR Not detected (Not detect); Entamoeba histolytica PCR Not detected (Not detect); Enteroaggregative E.coli(EAEC) Not detected (Not detect); Enteropathogenic E.coli(EPEC) Not detected (Not detect); Enterotoxigenic E.coli (ETEC) Not detected (Not detect); Giardia lamblia PCR Not detected (Not detect); Norovirus GI/GII PCR Not detected (Not detect); Plesiomonas shigelloides PCR Not detected (Not detect); Rotavirus A PCR Not detected (Not detect); Salmonella PCR Not detected (Not detect); Sapovirus PCR Not detected (Not detect); Shig/EnteroinvasiveE coli EIEC Not detected (Not detect); Shigalike tox-prod E coli STEC Not detected (Not detect); Vibrio PCR Not detected (Not detect); Vibrio cholerae PCR Not detected (Not detect); Yersinia enterocolitica PCR Not detected (Not detect)
[2018-03-12] MEDS: *HR* HYDROmorphone 2 MG/ML SYRINGE IVP PRN (05:31)
[2018-03-12 05:38] LABS: BUN/Creatinine Ratio 15 (6-26); Blood Urea Nitrogen 15 mg/dL (6-20); Calcium 7.9 mg/dL (8.6-10.3); Carbon Dioxide 22 mEq/L (23-29); Chloride 109 mEq/L (98-107); Glucose 91 mg/dL (70-105); Osmolality,Calculated 284 (280-300); Potassium 4.1 mEq/L (3.5-5.1); Sodium 137 mEq/L (136-145); eGFR For Non-African Americans > 60 (> 60)
[2018-03-12 05:43] LABS: Anisocytosis 1+ (Not Present); Macrocytosis Present (Not Present); Microcytosis Present (Not Present); Platelet Estimate Normal (Normal)
[2018-03-12] MEDS: Apixaban 5 MG TABLET PO SCH ×2 (08:09→20:55)
[2018-03-12] MEDS: Nystatin SUSP 5 ML UD.LIQ PO SCH (08:09)
--- NOTE | 2018-03-12 09:45 | Internal Med Progress Note ---
<Carmelina Calvin P - Last Filed: 03/12/18 11:23> Hospitalist Progress Note - Encounter Date of Encounter: 03/12/18 Time of Encounter: 08:30 - Subjective Interval History: He is 52 year old male with advanced metastatic Prostate cancer who is currently being treated with chemotherapy for advanced metastatic process cancer presented to ED for generalized weakness, feeling nauseated,pain abdomen & distention. He further stated that he is not eating well and unable to drink for last couple of days. He admitted nausea but he does not throw up.He was on 2 antibiotics from oncologist for last 5 days for frequent loose .CT abdomen done in ED showed : No significant change in right pelvic and right retroperitoneal adenopathy. Mild right hydronephrosis ,No obstructing stone visualized. 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 Respiratory viral panel was negative and GI panel was also negative, chest x-ray did not show any consolidation or infiltration, urine analysis was negative for infection, sputum was negative. His total white cell count 1.1 and ANC 181 today. Today during my bedside visit, the patient was sitting on the chair and taking his breakfast. He is not febrile, other vitals are stable. He admitted vague abdominal pain with waterbrash/belching. He denied any nausea vomiting. Oncology team will be following him up while he is in inpatient. - Exam Vitals: Temp Pulse Resp BP Pulse Ox 98.3 F 75 18 125/88 97 03/12/18 06:51 03/12/18 06:51 03/12/18 06:51 03/12/18 06:51 03/12/18 06:51 Exam: Gen: Alert, awake , Oriented to time,place and person : dehydration ++, Oral thrush + Chest: Diminished BS b/l, No crackles, No rales, No wheezing Heart: S1S2+ RRR No Murmurs Abd: Soft, BS + No organomegaly, mildly distended, slightly tender at LLQ Ext: No edema, pulses are palpable, no tenderness Neuro: No focal neuro deficits Psych: Normal mood Skin: No rash - Assessment and Plan (1) Neutropenia Current Visit: Yes Status: Acute Assessment and Plan: This is a patient of advanced metastatic prostate cancer under chemotherapy treatment White count 1.1 and Neutrophil 0.2 (ANC 181) , no fever ,may be post chemo induced neutropenia , but looking for source of infection/ pending blood culture Viral respi pannel Negative, GI pannel all negative, Sputum negative , Urinalysis : negative for infection. Chest Xray:Normal chest. No acute abnormality. No significant change from the prior study. CT abdo+ pelvis: No acute infective pathology, no Bowel obstruction We haven't given antibiotics as he is not febrile, Tem 98.3 for last 24 hours , Pul 75 we will closely monitor for impending sepsis. 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 CT abdomen and pelvis with contrast 02/28/2018 showed new hepatic metastatic disease with retroperitoneal and pelvic adenopathy, Rent MRI head : negative for intracranial lesion other than a skull bone metastasis. He is under oncologist follow-up in outpatient We have counselled him regarding comfort care /palliative care The patient and pt family has been positive to go for comfort care- home hospice, we are still working on it. IV pain medication for comfort : dilaudid 1mg IV [id number] Onco- team on board. (3) Oral thrush Current Visit: Yes Status: Acute Assessment and Plan: The patient has white he states patch in his mouth and oropharynx He has trouble with swallowing We have ordered Nystanin antifungal suspension Moroccan and swallow Feeling better than yesterday. (4) Esophagitis Current Visit: Yes Status: Acute Assessment and Plan: The patient has problem with swallowing Thursh/candidiasis present in oropharynx Dysphagia might be due to fungal infection / candidiasis He stated that it has been better than yesterday Will discuss the plan with oncologist for Antifungal Rx (5) Abdominal pain Current Visit: Yes Status: Acute Assessment and Plan: The patient has generalized mild abdominal pain, distension with frequent loses stool, feeling nauseated, belching CT abdomen and pelvis: Did not show any acute pathology or obstruction He is on PPI (6) Acute diarrhea Current Visit: Yes Status: Acute Assessment and Plan: The patient stated that he has frequent loose stool Oncologist put on 2 antibiotics for loose stool and distended abdomen He recently took antibiotics for his diarrhea as per onco advise Dr Villeda He has some sign of dehydration He is on IV hydration (7) DVT (deep venous thrombosis) Current Visit: Yes Status: Acute Assessment and Plan: The patient has history of DVT He was on Eliquis 5 mg BID , we have resumed it. (8) Physical deconditioning Current Visit: Yes Status: Acute Assessment and Plan: This patient with advanced multiple metastatic prostate cancer under chemotherapy We have consulted for palliative care/hospice at home We have counseled for pain medication/ Narcotics for comfort care (9) Hydronephrosis Current Visit: Yes Status: Acute Assessment and Plan: He has Rt sided mild hydronephrosis with out any sign of Infection, due to outside Compression from Tumour/ LN No obstructing stone found in CT abdomen No acute intervention Observe - Time Spent with Patient Total time spent is greater than 50% in coordination of care (as documented) at patient's floor/unit and/or counseling patient: Internal Medicine: Result - Labs CBC & Chem 7: 03/12/18 04:57 03/12/18 04:57 Labs: Short CBC 03/11/18 03/12/18 Range/Units 12:23 04:57 WBC 1.0 L* 1.1 L (4.3-11.1) K/mcL Hgb 11.7 L 10.2 L D (12.9-16.9) g/dL Hct 35.9 L 31.9 L (37.5-50.1) % Plt Count 223 197 (140-400) K/mcL Neutrophils # 0.3 L 0.2 L (1.6-8.9) K/mcL BMP 03/11/18 03/12/18 12:23 04:57 Sodium 135 L 137 Potassium 3.8 4.1 Chloride 109 H 109 H Carbon Dioxide 20 L 22 L BUN 15 15 Creatinine 0.91 1.02 Glucose 107 H 91 Calcium 8.0 L 7.9 L Cardiac Enzymes 03/11/18 Range/Units 12:23 Troponin I < 0.03 (< 0.04) ng/mL Liver Function 03/11/18 Range/Units 12:23 Total Bilirubin 0.3 (0.3-1.0) mg/dL Direct Bilirubin 0.1 (0.0-0.2) mg/dL AST 12 L (13-39) Units/L ALT 10 (7-52) Units/L Alkaline Phosphatase 49 (34-104) Units/L Albumin 4.1 (3.5-5.7) g/dL Urine 03/11/18 03/11/18 Range/Units 13:24 18:27 Urine Color Yellow Yellow (Yellow) Urine Clarity Clear Clear (Clear) Urine pH 6.0 6.0 (5.0-8.0) pH Units Ur Specific Schuyler 1.014 > 1.030 H (1.010-1.025) Urine Protein Negative Negative (Neg-Trace) mg/dL Urine Glucose (UA) Normal Normal (Normal) mg/dL - ABG Interpretation ABG results: PT/INR, D-dimer PT 13.6 Seconds (9.4-12.1) H 03/11/18 12:23 - Impressions Impressions Abdomen/Pelvis CT 03/11/18 12:23 IMPRESSION: No significant change in right pelvic and right retroperitoneal adenopathy. Mild right hydronephrosis, slightly increased. No obstructing stone visualized. Right ureter is dilated to the level of the distal right common iliac artery without a definite obstructing lesion visualized. Hepatic metastatic disease is unchanged. D/ / Dionne Vega MD / Dionne Vega MD Interpreting Provider: Dionne Vega MD Chest X-Ray 03/11/18 15:02 IMPRESSION: Normal chest. No acute abnormality. No significant change from the prior study. D/ / Russ Hernandez MD / Russ Hernandez MD Interpreting Provider: Russ Hernandez MD Consult Discharge Plan - Plan Referrals: Morteza Daily Jr, NURSE EPIDEMIOLOGIST [Advanced Practice Nurse] - NONE,PCP [Primary Care Provider] - <Lolly Loomis - Last Filed: 03/12/18 14:16> Hospitalist Progress Note - Encounter Date of Encounter: 03/12/18 - Exam Vitals: Temp Pulse Resp BP Pulse Ox 98.0 F 85 18 148/74 97 03/12/18 11:35 03/12/18 11:35 03/12/18 11:35 03/12/18 11:35 03/12/18 11:35 - Time Spent with Patient Total time spent is greater than 50% in coordination of care (as documented) at patient's floor/unit and/or counseling patient: Internal Medicine: Result - Labs CBC & Chem 7: 03/12/18 04:57 03/12/18 04:57 Labs: Short CBC 03/12/18 Range/Units 04:57 WBC 1.1 L (4.3-11.1) K/mcL Hgb 10.2 L D (12.9-16.9) g/dL Hct 31.9 L (37.5-50.1) % Plt Count 197 (140-400) K/mcL Neutrophils # 0.2 L (1.6-8.9) K/mcL BMP 03/12/18 04:57 Sodium 137 Potassium 4.1 Chloride 109 H Carbon Dioxide 22 L BUN 15 Creatinine 1.02 Glucose 91 Calcium 7.9 L Urine 03/11/18 Range/Units 18:27 Urine Color Yellow (Yellow) Urine Clarity Clear (Clear) Urine pH 6.0 (5.0-8.0) pH Units Ur Specific Schuyler > 1.030 H (1.010-1.025) Urine Protein Negative (Neg-Trace) mg/dL Urine Glucose (UA) Normal (Normal) mg/dL - ABG Interpretation ABG results: PT/INR, D-dimer PT 13.6 Seconds (9.4-12.1) H 03/11/18 12:23 - Impressions Impressions Chest X-Ray 03/11/18 15:02 IMPRESSION: Normal chest. No acute abnormality. No significant change from the prior study. D/ / Russ Hernandez MD / Russ Hernandez MD Interpreting Provider: Russ Hernandez MD - Attending Attestation I examined this patient and my medical decision-making was reviewed with the Resident Physician Dr. Calvin. I agree with the documented findings, dis position and treatment plan as described except to the extent set forth below Mr. Bernstein is a 52 y/o M with known PMH of metastatic pancreatic cancer who have been having profuse watery diarrhea, severe neutropenia, dysphagia pt who was started on Cipro and Flagyl prophylactically for diarrhea by Heme Onc , now he presented to the emergency room with worsening weakness, lethargic and fatigue. He seems to be having severe neutropenia with ANC at 286. He did receive his last chemo on 03/03/18 He denied any fever / chills. Pt stated his dysphagia little better today. Tolerating po intake OK Gen: A, A, O x3 Chest: Diminished BS b/l, no crckles no rales Abd: Soft, NT, BS+ Ext: 1 + edema HEENT: Oral thrush a.p 1. Severe neutropenia - mostly chemo induced and cancer related 2. Acute diarrhea 3. Severe physical deconditioning 4. Metastatic prostate cancer 5. Lower back pain due to metastatic disease Cont on neutropenia precautions His ANC went down to 181 today patient and family requested for DNR DNI blood cultures, urine culture, stool cx - so far negative GI panel - negative no need to start him on antibiotic yet since patient is afebrile monitoring symptoms closely for his dysphasia concerning for elton esophagitis started him on nystatin solution - feels better now Appreciate heme onc and palliative care recommendations pain meds [place] started him on MScontin as VLAD + Oxycodone for break through pain 6. b/l LE edema - dependent edema resumed home Lasix PO __ <Carmelina Calvin P - Last Filed: 03/12/18 11:23> (1) Neutropenia Qualifiers: Neutropenia type: secondary to cancer chemotherapy Qualified Code(s): D70.1 - Agranulocytosis secondary to cancer chemotherapy; T45.1X5A - Adverse effect of antineoplastic and immunosuppressive drugs, initial encounter (5) Abdominal pain Qualifiers: Abdominal location: generalized Qualified Code(s): R10.84 - Generalized abdominal pain (7) DVT (deep venous thrombosis) Qualifiers: Laterality: unspecified laterality Qualified Code(s): I82.409 - Acute embolism and thrombosis of unspecified deep veins of unspecified lower extremity (9) Hydronephrosis Qualifiers: Hydronephrosis type: unspecified Qualified Code(s): N13.30 - Unspecified hydronephrosis
[2018-03-12] MEDS: OXYCODONE Oral CONC 10 MG/0.5 ML ORAL.SYG SL PRN ×2 (10:44→15:23)
[2018-03-12] MEDS ORDERED: Albuterol Neb 1.25 MG/3 ML VIAL IH PRN (10:46)
[2018-03-12] MEDS ORDERED: Ipratropium/Albuterol Neb 3 ML IH PRN (10:47)
[2018-03-12] MEDS: Magic Mouthwash 10 ML UD Cup PO SCH ×2 (11:55→17:10)
--- NOTE | 2018-03-12 12:07 | Palliative - Consult Note ---
Date of Encounter: 03/12/18 Time of Encounter: 11:00 - Assessment and Plan (1) Cancer associated pain Current Visit: No Status: Chronic Assessment and plan: Patient still with significant discomfort in mid-lower back radiating down his legs. He received some IV Dilaudid doses yesterday as well as his Oxycodone 30mg and now has Oxycodone 10 mg if needed and Dilaudid has been discontinued. Have worked with 2A Pharmacist Dennis this am, and he is working with pt insurance [employer] for preauthorization for long acting pain medication (MS Contin). Patient previously worked through [facility] and Dr. Harrell, however, pharmacy states that MS capsule was not covered and needed to be written as tablet. He currently takes 120mg of Oxycodone daily - which is equivalent to 180mg Oral Morphine Equivalents. Allowing for 50% reduction for cross tolerance, will begin MS Contin 30mg every 8 hours and titrate as needed. Prescription has been written and pharmacist faxing for preauthorization. I also spoke with Dr. Harrell by telephone this am with this information, as well as discussed with patient and his . 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 He is still able to ambulate and independent in ADL's. He desires to continue cancer treatment if anything left to offer. They are open to hospice when no longer eligible for treatment. Advanced directives have already been completed. DNR/DNI state form completed and signed by patient. Copies provided to them and placed on medical record. Oncology is following here as well. 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 Bernstein is a 52 year old male with a history of metastatic prostate cancer, who was admitted with increased pain, weakness, decreased intake, diarrhea. He was seen on the at the cancer center and was having increased pain and given Hydromorphone during that visit. He is cared for by Dr. Villeda, and has been undergoing chemotherapy. He has had progression of disease with recent hepatic involvement as well as new parietal bone lesion. Other history includes: tobacco abuse, and DVT currently on Eloquis. Vitals have been stable, patient is neutropenic with WBC 1.0, Neutrophils 0.3 on admission. Oncology notes were reviewed and they are proposing another line of treatment for chelsea gifford, as his disease appears to have progressed on current regimen with Taxotere. Discussions were held yesterday, and patient changed code status to DNR/DNI. Upon my visit this am, patient is ambulating in room. He is uncomfortable and I contacted primary nurse to obtain pain medication. He states diarrhea is less, and he feels somewhat better with IV fluids. He states that his insurance would not cover any long acting pain medication, and it is getting tough to tolerate with the Oxycodone. Pain is constant, but does become worse at times, making it difficult to "catch his breath". Starts mid back and radiates down lower back and both legs. No certain movement or positioning appear to improve or worsen. Palliative consult was initiated to assist with symptom management. CC: Rosales Yan MD - Time Spent with Patient Time: Total time spent is greater than 50% in coordination of care (as documented) at patient's floor/unit and/or counseling patient: Past Med Surg Social Fam HX - Past Medical History Medical history: cancer Additional medical history: Pt has prostate cancer w/ mets to liver Psychiatric history: no psych history - Past Surgical History Surgical History: non-contributory Additional surgical history: biopsy, clean heart cath - Social History Smoking Status: Current every day smoker Smokeless Tobacco Status: No Alcohol use: none Drug use: none - Family History Father History Unknown: Yes Mother Living Status: Age at : 70 Cause of : SD Hx Family Cardiac Disorders: Yes Hx Family Respiratory Disorders: No Hx Family Cancer: Yes Hx Family GI Disorders: No Hx Family Genitourinary Disorders: No Hx Family Endocrine Disorder: Yes Hx Family Musculoskeletal Disorders: No Hx Family Neuromuscular Disorders: No Hx Family Neurologic Disorders: No Hx Family HEENT Disorders: No Hx Family Autoimmune Disorders: No Hx Family Reproductive Disorders: No Hx Family Psychosocial Disorders: No Hx Family Medical Disorders: No Medications and Allergies Cyanocobalamin (B-12) [Vitamin B12] 1,000 mcg IM QMONTH 08/31/17 [History] OxyCODONE Immed Rel [Roxicodone 30 MG] 30 mg PO QID PRN 08/31/17 [History] Prochlorperazine Maleate [Compazine] 10 mg PO Q6H PRN #30 tablet 02/06/18 [Rx] Tamsulosin [Flomax] 1 tab PO BID #60 cap.er.24h 02/07/18 [Rx] Apixaban [Eliquis] 5 mg PO BID #60 tablet 02/10/18 [Rx] Furosemide [Lasix] 40 mg PO DAILY #30 tablet 03/03/18 [Rx] Omeprazole [PriLOSEC] 20 mg PO BIDAC #60 cap 03/03/18 [Rx] Potassium Chloride 20 meq PO DAILY #30 tab.er.prt 03/03/18 [Rx] Albuterol Neb [AccuNeb] 1.25 mg IH BID PRN 03/11/18 [History] Dronabinol [Marinol] 5 mg PO BID 03/11/18 [History] Trazodone HCl 150 mg PO HS 03/11/18 [History] predniSONE [PredniSONE] 5 mg PO BID 03/11/18 [History] Allergy/AdvReac Type Severity Reaction Status Date / Time No Known Allergies Allergy Verified 03/10/18 11:46 All systems: reviewed and no additional remarkable complaints except as stated (intermitted diarrhea, poor appetite, back/pelvic/leg pain, generalized weakness) Palliative Care-Exam - Constitutional Vitals: Temp Pulse Resp BP Pulse Ox 98.0 F 85 18 148/74 97 03/12/18 11:35 03/12/18 11:35 03/12/18 11:35 03/12/18 11:35 03/12/18 11:35 General appearance: Present: febrile, cooperative, no acute distress - Head Head Exam: Present: normal inspection, normocephalic - Eye Eye exam: Present: normal appearance, PERRL - Respiratory Respiratory exam: Present: decreased breath sounds, CTAB - Cardiovascular Cardiovascular exam: Present: +S1, +S2 - GI/Abdominal Exam GI/Abdominal exam: Present: normal bowel sounds, soft - Extremities Exam Extremities exam: Present: normal capillary refill, normal inspection - Neurological Exam Neurological exam: Present: alert, oriented X3, strengths equal and symetr throughout - Psychiatric Psychiatric exam: Present: normal affect, normal mood - Skin Skin exam: Present: dry, pallor, warm Internal Medicine - CN: Reslt - Labs CBC & Chem 7: 03/12/18 04:57 03/12/18 04:57 Labs: Short CBC 03/11/18 03/12/18 Range/Units 12:23 04:57 WBC 1.0 L* 1.1 L (4.3-11.1) K/mcL Hgb 11.7 L 10.2 L D (12.9-16.9) g/dL Hct 35.9 L 31.9 L (37.5-50.1) % Plt Count 223 197 (140-400) K/mcL Neutrophils # 0.3 L 0.2 L (1.6-8.9) K/mcL BMP 03/11/18 03/12/18 12:23 04:57 Sodium 135 L 137 Potassium 3.8 4.1 Chloride 109 H 109 H Carbon Dioxide 20 L 22 L BUN 15 15 Creatinine 0.91 1.02 Glucose 107 H 91 Calcium 8.0 L 7.9 L Cardiac Enzymes 03/11/18 Range/Units 12:23 Troponin I < 0.03 (< 0.04) ng/mL Liver Function 03/11/18 Range/Units 12:23 Total Bilirubin 0.3 (0.3-1.0) mg/dL Direct Bilirubin 0.1 (0.0-0.2) mg/dL AST 12 L (13-39) Units/L ALT 10 (7-52) Units/L Alkaline Phosphatase 49 (34-104) Units/L Albumin 4.1 (3.5-5.7) g/dL Urine 03/11/18 03/11/18 Range/Units 13:24 18:27 Urine Color Yellow Yellow (Yellow) Urine Clarity Clear Clear (Clear) Urine pH 6.0 6.0 (5.0-8.0) pH Units Ur Specific [place] 1.014 > 1.030 H (1.010-1.025) Urine Protein Negative Negative (Neg-Trace) mg/dL Urine Glucose (UA) Normal Normal (Normal) mg/dL - ABG Interpretation ABG results: PT/INR, D-dimer PT 13.6 Seconds (9.4-12.1) H 03/11/18 12:23 - Impressions Impressions Abdomen/Pelvis CT 03/11/18 12:23 IMPRESSION: No significant change in right pelvic and right retroperitoneal adenopathy. Mild right hydronephrosis, slightly increased. No obstructing stone visualized. Right ureter is dilated to the level of the distal right common iliac artery without a definite obstructing lesion visualized. Hepatic metastatic disease is unchanged. D/ / Dionne Vega MD / Dionne Vega MD Interpreting Provider: Dionne Vega MD Chest X-Ray 03/11/18 15:02 IMPRESSION: Normal chest. No acute abnormality. No significant change from the prior study. D/ / Russ Hernandez MD / Russ Hernandez MD Interpreting Provider: Russ Hernandez MD Consult Discharge Plan - Plan Referrals: NONE,PCP [Primary Care Provider] - Palliative Quality Palliative Quality: Screen for Code Status: Yes, Screen for Goals of Care: Yes, Screen for Pain: Yes, If Pain Regimen Started, Initiate Bowel Regimen: NA (diarrhea), Screen for Nausea/Vomitting: Yes Code Status: 03/11/18 14:59 Resuscitation Status: Active [RES] Routine Comment: Resuscitation Status: [id number]
[2018-03-12] MEDS: predniSONE 5 MG TABLET PO SCH ×2 (15:22→20:55)
[2018-03-12] MEDS: Furosemide 40 MG TABLET PO SCH (15:22)
--- NOTE | 2018-03-12 16:33 | Oncology Inp Progress Note ---
<Preeti Villeda S - Last Filed: 03/12/18 17:44> Date of Encounter: 03/12/18 Oncology: Obj Data - Labs CBC & Chem 7: 03/12/18 04:57 03/12/18 04:57 Consult Discharge Plan - Plan Referrals: NONE,PCP [Primary Care Provider] - Inpatient Charges Provider: Dr. Mary Villeda Follow up - Inpatient: [id number] - Attending Attestation I examined this patient and my medical decision-making was reviewed with the Advanced Practice Nurse. I agree with the documented findings, disposition and treatment plan as described except to the extent set forth below. 1. Castrate resistant metastatic prostate cancer. Currently on palliative Taxotere and he has progression.. Current PSA 12. May consider Cabzitaxel once he feels better 2. Neutropenia neutrophil count 200. Afebrile and no evidence of sepsis. Expect neutropenia to recover shortly. If he has problems secondary to neutropenia would consider Neupogen 3. Cancer related pain mainly body pain and bone pain. MS Contin 30 mg every 8 hours started. Working on co-pay assistance Also continue oxycodone 30 mg by mouth every 6 hours when necessary. Patient also wanted to know if we can take over pain management which is reasonable. I will write for future prescriptions as an outpatient 4. Dehydration and improved with IV fluids. Continue to have some diarrhea. This could be secondary to Taxotere. Stool cultures negative. We will do C. difficile <Elayne Hughes L - Last Filed: 03/13/18 10:12> Date of Encounter: 03/12/18 Time of Encounter: 12:00 (1) Acute diarrhea Current Visit: Yes Status: Acute Assessment and plan: Treated as outpatient with Cipro and Flagyl Stool GI. panel culture and C. difficile pending, further recommendations to follow Continue zofran for nausea, denies vomiting Diarrhea improving since admission, Stool GI panel negative, C. Diff ordered, I do not see result listed on GI panel Diarrhea may be treatment induced (2) DVT prophylaxis Current Visit: No Status: Acute Assessment and plan: History of left lower extremity DVT, continue Eliquis (3) Intractable pain Current Visit: Yes Status: Acute Assessment and plan: Reports diffuse pain as well as right upper quadrant abdominal pain He has seen pain management through Dr. Harrell as outpatient and previously taking oxycodone 30 mg by mouth every 8 hours as needed, working through the logistics of starting MS Contin as outpatient and apparently had issues with insurance approval and co-pay Plan: Palliative care consulted---Added MS contin 30 mg PO Q8 hours in addition to continuing oxycodone for breakough Dr. Villeda agreeable to taking over full pain control management as outpatient Currently working with financial counselor for options for assistance with cost of MS Contin (4) Neutropenia Current Visit: Yes Status: Acute Assessment and plan: WBC count 1, ANC 300 Likely secondary to cornelia status post last cycle of Taxotere on 03/03/2017 No reports of subjective fevers, afebrile since admission Plan: Neutropenic Precautions Continue to monitor fever trend and re-hill culture for fever Hill culture negative--blood cultures obtained and pending NGTD, stool GI panel, chest x-ray, UA Currently no indication for antibiotic therapy, no role for Neupogen at this time, consider if he has infection/fever/sepsis Qualifiers: Neutropenia type: secondary to cancer chemotherapy Qualified Code(s): D70.1 - Agranulocytosis secondary to cancer chemotherapy; T45.1X5A - Adverse effect of antineoplastic and immunosuppressive drugs, initial encounter (5) Oral thrush Current Visit: Yes Status: Acute Assessment and plan: Started on nystatin Appears to be more consistent with mucositis, maybe mild component of thrush, will start magic mouthwash (6) 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 Currently metastatic disease with the right external iliac adenopathy and progr essive retroperitoneal adenopath. He has progressed on Abiraterone and Enzalutamide. Pembrolizumab declined by insurance. He was evaluated at the [facility] around 07/18/2017 and may be a candidate for randomized phase 2 study if he has progression on current treatment. He continues on Lupron and denosumab. Current treatment includes palliative intent Taxotere with prednisone 5 mg twice a day, cycle repeated every 3 weeks, he is status post cycle #11 on 03/03/2017. At this visit Dr. Villeda also discussed restaging scan results with patient and his . CT abdomen and pelvis with contrast 02/28/2018 showed new hepatic metastatic disease. Mild improvement in retroperitoneal and pelvic adenopathy. Persistent right hydronephrosis possibly secondary to ureteral stricture. At that time, patient and patients wished to continue treatment, not agreeable to hospice. Plan: Patient agreeable to palliative care consultation for further recommendations of pain management He has been resistant to hospice discussions in the past Transitioned to DNR CCA DO NOT INTUBATE Goals of care and treatment options will continue to be an ongoing discussion, if clinical condition improves he has other options for treatment including cabazitaxel or [facility] referral for clinical trial discussion Further follow up as outpatient Oncology: Subj Interval history: Resting in chair with at bedside. Reports pain, due for pain medication. Planned to start MS contin dosing at 1600 today. Reports some mild nausea, no vomiting. He has been ambulating in room, appetite has been poor. Reports dyspepsia, asking about prilosec. is asking about restarting lasix for increasing LE edema - Constitutional General appearance: cooperative, no acute distress, no febrile Exam: chronically ill appearing - Head Head exam: Present: atraumatic - ENT Additional comments: very mild thrush noted roof of mouth - Respiratory Respiratory exam: Present: decreased breath sounds, CTAB. Absent: respiratory distress - Cardiovascular Cardiovascular exam: Present: RRR - GI/Abdominal GI/Abdominal exam: Present: normal bowel sounds, soft. Absent: tenderness - Extremities Exam Extremities exam: Present: pedal edema. Absent: calf tenderness Additional comments: 1+ BLE pitting edema - Neurological Exam Neurological exam: Present: alert, oriented X3, no focal deficits, strengths equal and symetr throughout - Psychiatric Psychiatric exam: Present: normal affect, normal mood - Skin Skin exam: Present: dry, intact, normal color, warm Oncology: Obj Data - Labs CBC & Chem 7: 03/13/18 05:24 03/13/18 05:24 Inpatient Charges Provider: Dr. Mary Villeda
[2018-03-12] MEDS: *HR* Morphine Sulfate SR (12 HR) 30 MG TABLET.ER PO SCH (17:10)
[2018-03-12] MEDS ORDERED: predniSONE 5 MG TABLET PO SCH (21:00)
[2018-03-13] MEDS: *HR* Morphine Sulfate SR (12 HR) 30 MG TABLET.ER PO SCH ×4 (00:10→23:44)
[2018-03-13 05:44] LABS: Hematocrit 34.2 % (37.5-50.1); Hemoglobin 11.4 g/dL (12.9-16.9); Lymphocytes # 0.4 K/mcL (0.6-4.6); Mean Corpuscular HGB Conc 33.3 g/dL (31.6-35.5); Mean Corpuscular Hemoglobin 30.6 pg (28.0-33.3); Mean Corpuscular Volume 91.7 fL (83.0-100.0); Mean Platelet Volume 9.6 fL (9.4-12.4); Monocytes # 0.2 K/mcL (0.0-1.3); Neutrophils # 0.2 K/mcL (1.6-8.9); Platelet Count 239 K/mcL (140-400); Red Blood Count 3.73 M/mcL (4.19-5.50); Red Cell Distribution Width 17.2 % (11.5-14.5)
[2018-03-13] MEDS ORDERED: Acetaminophen 325 MG TABLET PO ONE (05:59)
[2018-03-13 06:00] LABS: BUN/Creatinine Ratio 20 (6-26); Blood Urea Nitrogen 17 mg/dL (6-20); Carbon Dioxide 23 mEq/L (23-29); Chloride 102 mEq/L (98-107); Glucose 146 mg/dL (70-105); Osmolality,Calculated 282 (280-300); Potassium 4.6 mEq/L (3.5-5.1); Sodium 134 mEq/L (136-145); eGFR For Non-African Americans > 60 (> 60)
[2018-03-13] MEDS: *HR* OxyCODONE Immed Rel 15 MG TABLET PO PRN ×3 (06:05→18:40)
[2018-03-13 07:12] LABS: Platelet Estimate Normal (Normal)
[2018-03-13 07:13] LABS: Hypochromasia Present (Not Present); Large Platelets Present (Not Present); Microcytosis Present (Not Present)
[2018-03-13 07:14] LABS: Anisocytosis 1+ (Not Present)
[2018-03-13] MEDS: predniSONE 5 MG TABLET PO SCH ×2 (08:07→21:34)
[2018-03-13] MEDS: Furosemide 40 MG TABLET PO SCH (08:07)
[2018-03-13] MEDS: Apixaban 5 MG TABLET PO SCH ×2 (08:07→21:34)
[2018-03-13] MEDS: Magic Mouthwash 10 ML UD Cup PO SCH ×3 (08:08→16:45)
--- NOTE | 2018-03-13 10:50 | Electrocardiograph Report ---
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
--- NOTE | 2018-03-13 11:01 | Internal Med Progress Note ---
Addendum entered and electronically signed by Carmelina Calvin 03/13/18 15:20: I am the Author Original Note: <Carmelina Calvin - Last Filed: 03/13/18 13:23> Hospitalist Progress Note - Encounter Date of Encounter: 03/13/18 Time of Encounter: 09:45 - Subjective Interval History: He is 52 year old male with advanced metastatic Prostate cancer who is currently being treated with chemotherapy for advanced metastatic process cancer presented to ED for generalized weakness, feeling nauseated,pain abdomen & distention. He further stated that he is not eating well and unable to drink for last couple of days. He admitted nausea but he does not throw up.He was on 2 antibiotics from oncologist for last 5 days for frequent loose .CT abdomen done in ED showed : No significant change in right pelvic and right retroperitoneal adenopathy. Mild right hydronephrosis ,No obstructing stone visualized. 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 Respiratory viral panel was negative and GI panel was also negative, chest x-ray did not show any consolidation or infiltration, urine analysis was negative for infection, sputum was negative. His total white cell count 0.9 and ANC 181 yesterday - 217 today. Today during my bedside visit, the patient was sitting on the chair and taking his breakfast. He is not febrile, other vitals are stable. He admitted minimal epigatric pain and pedel edema , but dysphagia, LLQ pain is getting much better. He denied any nausea vomiting. Palliative care and Oncology team will be following him up while he is in inpatient. - Exam Vitals: Temp Pulse Resp BP Pulse Ox 98.7 F 95 16 130/74 97 03/13/18 07:14 03/13/18 07:14 03/13/18 07:14 03/13/18 07:14 03/13/18 07:14 Exam: Gen: Alert, awake , Oriented to time,place and person : dehydration +, Oral thrush +/ better Chest: Diminished BS b/l, No crackles, No rales, No wheezing Heart: S1S2+ RRR No Murmurs Abd: Soft, BS + No organomegaly, mildly distended, slightly tender at LLQ Ext: No edema, pulses are palpable, no tenderness Neuro: No focal neuro deficits Psych: Normal mood Skin: No rash - Assessment and Plan (1) Neutropenia Current Visit: Yes Status: Acute Assessment and Plan: This is a patient of advanced metastatic prostate cancer under chemotherapy treatment White count 0.9 and Neutrophil 0.2 (ANC 217) , no fever ,may be post chemo induced neutropenia , but looking for source of infection/ pending blood culture Viral respi pannel Negative, GI pannel all negative, Sputum negative , Urinalysis : negative for infection. Chest Xray:Normal chest. No acute abnormality. No significant change from the prior study. CT abdo+ pelvis: No acute infective pathology, no Bowel obstruction We haven't given antibiotics as he is not febrile, Tem 98.3 for last 24 hours , Pul 75 we will closely monitor for impending sepsis. We have stopped IV fluid , encouraged oral hydration and ordered physical precaution for neutropenia Will closely monitor for Impending sepsis (2) Cancer associated pain Current Visit: Yes Status: Acute Assessment and Plan: significant pain in mid-lower back radiating down his legs. It might be related to Metastatic prostate cancer. He is on Morphin sulphate ( Ms contin )30 mg 8 hourly and Oxycodon 30 mg 6 hrly. working on for preauthorization for long acting pain medication (MS Contin) with insurance [employer]: planned for :MS Contin 30mg every 8 hours and titrate as needed,and Oxycodon as a breakthrough medication. No IV dilaudid Pallaitive care and oncologist on board. (3) Prostate cancer metastatic to liver Current Visit: Yes Status: Acute Assessment and Plan: This is apatient with Advanced prostate cancer with multiple metastasis , under chemotherapy. CT abdomen and pelvis with contrast 02/28/2018 showed new hepatic metastatic disease with retroperitoneal and pelvic adenopathy, Rent MRI head : negative for intracranial lesion other than a skull bone metastasis. He is under oncologist follow-up in outpatient We have counselled him regarding comfort care /palliative care The patient and pt family has been positive to go for comfort care- home hospice, we are still working on it. IV pain medication for comfort :working on for preauthorization for long acting pain medication (MS Contin) with insurance company: planned for :MS Contin 30mg every 8 hours and titrate as needed and Oxycodon as a breakthrough medication. Onco- team on board. Pallaitive care and (4) Oral thrush Current Visit: Yes Status: Acute Assessment and Plan: The patient has white he states patch in his mouth and oropharynx, getting much better since admission. He has had trouble with swallowing Feeling better than before , he is on Magic mouth wash (5) Esophagitis Current Visit: Yes Status: Acute Assessment and Plan: He has had pain with swallowing It might be Fungal or may be due to GERD We added PPI Getting much better (6) Abdominal pain Current Visit: Yes Status: Acute Assessment and Plan: The patient has generalized mild abdominal pain, distension with frequent loses stool, feeling nauseated, belching CT abdomen and pelvis: Did not show any acute pathology or obstruction He is on PPI (7) Acute diarrhea Current Visit: Yes Status: Acute Assessment and Plan: The patient stated that he has frequent loose stool, but it has been much better today Oncologist put on 2 antibiotics for loose stool and distended abdomen, he took antibiotics for his diarrhea as per onco advise Dr Villeda He has some sign of dehydration, we have encouraged Oral hydration (8) DVT (deep venous thrombosis) Current Visit: Yes Status: Acute Assessment and Plan: The patient has history of DVT He was on Eliquis 5 mg BID , we have resumed it. (9) Physical deconditioning Current Visit: Yes Status: Acute Assessment and Plan: This patient with advanced multiple metastatic prostate cancer under chemotherapy We have consulted for palliative care/hospice at home We have counseled for pain medication/ Narcotics for comfort care (10) Hydronephrosis Current Visit: Yes Status: Acute Assessment and Plan: He has Rt sided mild hydronephrosis with out any sign of Infection, due to outside Compression from Tumour/ LN No obstructing stone found in CT abdomen No acute intervention Observe (11) Dependent edema Current Visit: Yes Status: Acute Assessment and Plan: Mild bilateral pedal edema may be due to Metastatic Cancer or nutritional We will monitor - Time Spent with Patient Total time spent is greater than 50% in coordination of care (as documented) at patient's floor/unit and/or counseling patient: Internal Medicine: Result - Labs CBC & Chem 7: 03/13/18 05:24 03/13/18 05:24 Labs: Short CBC 03/13/18 Range/Units 05:24 WBC 0.9 L* (4.3-11.1) K/mcL Hgb 11.4 L (12.9-16.9) g/dL Hct 34.2 L (37.5-50.1) % Plt Count 239 (140-400) K/mcL Neutrophils # 0.2 L (1.6-8.9) K/mcL BMP 03/13/18 05:24 Sodium 134 L Potassium 4.6 Chloride 102 Carbon Dioxide 23 BUN 17 Creatinine 0.85 Glucose 146 H Calcium 10.0 - ABG Interpretation ABG results: PT/INR, D-dimer PT 13.6 Seconds (9.4-12.1) H 03/11/18 12:23 Consult Discharge Plan - Plan Referrals: NONE,PCP [Primary Care Provider] - <Lolly Loomis - Last Filed: 03/13/18 14:57> Hospitalist Progress Note - Encounter Date of Encounter: 03/13/18 - Exam Vitals: Temp Pulse Resp BP Pulse Ox 98.8 F 90 16 123/74 97 03/13/18 11:44 03/13/18 11:44 03/13/18 11:44 03/13/18 11:44 03/13/18 11:44 - Time Spent with Patient Total time spent is greater than 50% in coordination of care (as documented) at patient's floor/unit and/or counseling patient: Internal Medicine: Result - Labs CBC & Chem 7: 03/13/18 05:24 03/13/18 05:24 Labs: Short CBC 03/13/18 Range/Units 05:24 WBC 0.9 L* (4.3-11.1) K/mcL Hgb 11.4 L (12.9-16.9) g/dL Hct 34.2 L (37.5-50.1) % Plt Count 239 (140-400) K/mcL Neutrophils # 0.2 L (1.6-8.9) K/mcL BMP 03/13/18 05:24 Sodium 134 L Potassium 4.6 Chloride 102 Carbon Dioxide 23 BUN 17 Creatinine 0.85 Glucose 146 H Calcium 10.0 - ABG Interpretation ABG results: PT/INR, D-dimer PT 13.6 Seconds (9.4-12.1) H 03/11/18 12:23 - Attending Attestation I examined this patient and my medical decision-making was reviewed with the Resident Physician Dr. Calvin. I agree with the documented findings, disposition and treatment plan as described except to the extent set forth below Mr. Bernstein is a 52 y/o M with known PMH of metastatic pancreatic cancer who have been having profuse watery diarrhea, severe neutropenia, dysphagia pt who was started on Cipro and Flagyl prophylactically for diarrhea by Heme Onc , now he presented to the emergency room with worsening weakness, lethargic and fatigue. He seems to be having severe neutropenia with ANC at 286. He did receive his last chemo on 03/03/18 He denied any fever / chills. Pt stated his dysphagia little better today. Tolerating po intake OK Gen: A, A, O x3 Chest: Diminished BS b/l, no crckles no rales Abd: Soft, NT, BS+ Ext: 1 + edema HEENT: Oral thrush a.p 1. Severe neutropenia - mostly chemo induced and cancer related 2. Acute diarrhea 3. Severe physical deconditioning 4. Metastatic prostate cancer 5. Lower back pain due to metastatic disease Cont on neutropenia precautions His ANC slowly improving ..today @ 216 Will defer to Heme Onc for Neupogen shots patient and family requested for DNR DNI blood cultures, urine culture, stool cx - so far negative GI panel - negative no need to start him on antibiotic yet since patient is afebrile monitoring symptoms closely for his dysphasia concerning for elton esophagitis started him on nystatin solution - feels better now Appreciate heme onc and palliative care recommendations pain meds carolina started him on MScontin as VLAD + Oxycodone for break through pain Pain is much better 6. b/l LE edema - dependent edema Improving PO Lasix <Dhungana,Dhurba P - Last Filed: 03/13/18 13:23> (1) Neutropenia Qualifiers: Neutropenia type: secondary to cancer chemotherapy Qualified Code(s): D70.1 - Agranulocytosis secondary to cancer chemotherapy; T45.1X5A - Adverse effect of antineoplastic and immunosuppressive drugs, initial encounter (6) Abdominal pain Qualifiers: Abdominal location: generalized Qualified Code(s): R10.84 - Generalized abdominal pain (8) DVT (deep venous thrombosis) Qualifiers: Laterality: unspecified laterality Qualified Code(s): I82.409 - Acute embolism and thrombosis of unspecified deep veins of unspecified lower extremity (10) Hydronephrosis Qualifiers: Hydronephrosis type: unspecified Qualified Code(s): N13.30 - Unspecified hydronephrosis
--- NOTE | 2018-03-13 11:03 | Palliative Progress Note ---
Date of Encounter: 03/13/18 Time of Encounter: 08:45 - Assessment and plan (1) Cancer associated pain Current Visit: No Status: Chronic Assessment and plan: Patient states that he tolerated MS Valerio well and pain better managed this am. Has had 3 doses thus far. Oxycodone remains for breakthrough pain. Appears he used less through the night. Continue to monitor. (2) Goals of care, counseling/discussion Current Visit: Yes Status: Acute Assessment and plan: Patient desires to continue treatment offered by Oncology. `Code status DNR/DNI. Prescription written for MS Valerio, has been approved. Patient is aware that when cancer treatment ends, he will be eligible for hospice. (3) Prostate cancer metastatic to liver Current Visit: Yes Status: Acute (4) Acute diarrhea Current Visit: Yes Status: Acute - Time Spent With Patient Total time spent is greater than 50% in coordination of care (as documented) at patient's floor/unit and/or counseling patient: - Subjective Interval history: Patient awake and walking in hallway. States that his pain feels better this am, still took an Oxycodone for breakthrough this am, but he is able to talk in full sentences without stopping to catch his breath. Didn't sleep well as lost power last night. WBC 0.9 this am. Vital signs stable. - Constitutional Vitals: Abnormal lab results WBC 0.9 K/mcL (4.3-11.1) L* 03/13/18 05:24 RBC 3.73 M/mcL (4.19-5.50) L 03/13/18 05:24 Hgb 11.4 g/dL (12.9-16.9) L 03/13/18 05:24 Hct 34.2 % (37.5-50.1) L 03/13/18 05:24 RDW 17.2 % (11.5-14.5) H 03/13/18 05:24 Neutrophils # 0.2 K/mcL (1.6-8.9) L 03/13/18 05:24 Lymphocytes # 0.4 K/mcL (0.6-4.6) L 03/13/18 05:24 Large Platelets Present (Not Present) A 03/13/18 05:24 Hypochromasia Present (Not Present) A 03/13/18 05:24 Anisocytosis 1+ (Not Present) A 03/13/18 05:24 Microcytosis Present (Not Present) A 03/13/18 05:24 Macrocytosis Present (Not Present) A 03/12/18 04:57 PT 13.6 Seconds (9.4-12.1) H 03/11/18 12:23 Sodium 134 mEq/L (136-145) L 03/13/18 05:24 Glucose 146 mg/dL (70-105) H 03/13/18 05:24 AST 12 Units/L (13-39) L 03/11/18 12:23 Lipase 5 Units/L (11-82) L 03/11/18 12:23 Ur Specific [place] > 1.030 (1.010-1.025) H 03/11/18 18:27 General appearance: Present: no acute distress - Respiratory Respiratory exam: Present: decreased breath sounds Additional comments: Faint expiratory wheezes - Cardiovascular Cardiovascular exam: Present: +S1, +S2 - GI/Abdominal GI/Abdominal exam: Present: normal bowel sounds, soft - Extremities Exam Extremities exam: Present: normal capillary refill, normal inspection - Neurological Exam Neurological exam: Present: alert, oriented X3, strengths equal and symetr throughout - Skin Skin exam: Present: dry, warm Palliative Quality Palliative Quality: Screen for Code Status: Yes, Screen for Goals of Care: Yes, Screen for Pain: Yes, If Pain Regimen Started, Initiate Bowel Regimen: NA (diarrhea), Screen for Nausea/Vomitting: Yes Code Status: 03/11/18 14:59 Resuscitation Status: Active [RES] Routine Comment: Resuscitation Status: [id number] - Labs CBC & Chem 7: 03/13/18 05:24 03/13/18 05:24 Labs: Laboratory Results - last 24 hr 03/13/18 03/13/18 05:24 05:24 WBC 0.9 L* RBC 3.73 L Hgb 11.4 L Hct 34.2 L MCV 91.7 MCH 30.6 MCHC 33.3 RDW 17.2 H Plt Count 239 MPV 9.6 Seg Neutrophils % 24.0 Lymphocytes % 46.0 Monocytes % 26.0 Basophils % 4.0 Neutrophils # 0.2 L Lymphocytes # 0.4 L Monocytes # 0.2 Basophils # 0.0 Platelet Estimate Normal Large Platelets Present A Hypochromasia Present A Anisocytosis 1+ A Microcytosis Present A Sodium 134 L Potassium 4.6 Chloride 102 Carbon Dioxide 23 BUN 17 Creatinine 0.85 Est GFR ( Amer) > 60 Est GFR (Non-Af Amer) > 60 BUN/Creatinine Ratio 20 Glucose 146 H Calculated Osmolality 282 Calcium 10.0 - ABG Interpretation ABG results: PT/INR, D-dimer PT 13.6 Seconds (9.4-12.1) H 03/11/18 12:23 Consult Discharge Plan - Plan Referrals: NONE,PCP [Primary Care Provider] -
--- NOTE | 2018-03-13 15:02 | Oncology Inp Progress Note ---
<Elayne Hughes L - Last Filed: 03/13/18 15:06> Date of Encounter: 03/13/18 Time of Encounter: 10:00 (1) Acute diarrhea Current Visit: Yes Status: Acute Assessment and plan: Treated as outpatient with Cipro and Flagyl Continue zofran for nausea, denies vomiting Diarrhea improving since admission, Stool GI panel negative, C. Diff pending Diarrhea may be treatment induced Patient states improving, stool is firming (2) DVT prophylaxis Current Visit: No Status: Acute Assessment and plan: History of left lower extremity DVT, continue Eliquis (3) Intractable pain Current Visit: Yes Status: Acute Assessment and plan: Reports diffuse pain as well as right upper quadrant abdominal pain He has seen pain management through Dr. Harrell as outpatient and previously taking oxycodone 30 mg by mouth every 8 hours as needed, working through the logistics of starting MS Contin as outpatient and apparently had issues with insurance approval and co-pay Plan: Palliative care consulted---Added MS contin 30 mg PO Q8 hours in addition to [facility] agreeable to taking over full pain control management as outpatient I discussed options for any financial assistance to help cover cost of copay for MS Contin, provided patient with coupons and discussed that coupons are good for month by month basis, cost may change and that pharmacies have the right to refuse coupon (4) Neutropenia Current Visit: Yes Status: Acute Assessment and plan: ANC 200 today Secondary to cornelia status post last cycle of Taxotere on 03/03/2017 No reports of subjective fevers, afebrile since admission, meets 1/2 SIRS (only criteria meeting is neutropenia which patient has other etiology for) Plan: Continue Neutropenic Precautions Continue to monitor fever trend and re-hill culture for fever Hill culture negative--blood cultures obtained and pending NGTD, stool GI panel, chest x-ray, UA---currently no diagnostic evidence of infection or any symptom concerning for infection Currently no indication for antibiotic therapy, no role for Neupogen at this time Patients concerned over starting neupogen, see HPI for further information on discussion Qualifiers: Neutropenia type: secondary to cancer chemotherapy Qualified Code(s): D70.1 - Agranulocytosis secondary to cancer chemotherapy; T45.1X5A - Adverse effect of antineoplastic and immunosuppressive drugs, initial encounter (5) Oral thrush Current Visit: Yes Status: Acute Assessment and plan: Started on nystatin Appears to be more consistent with mucositis, maybe mild component of thrush, will start magic mouthwash (6) 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 Currently metastatic disease with the right external iliac adenopathy and progressive retroperitoneal adenopath. He has progressed on Abiraterone and Enzalutamide. Pembrolizumab declined by insurance. He was evaluated at the [facility] around 07/18/2017 and may be a candidate for randomized phase 2 study if he has progression on current treatment. He continues on Lupron and denosumab. Current treatment includes palliative intent Taxotere with prednisone 5 mg twice a day, cycle repeated every 3 weeks, he is status post cycle #11 on 03/03/2017. At this visit Dr. Villeda also discussed restaging scan results with patient and his . CT abdomen and pelvis with contrast 02/28/2018 showed new hepatic metastatic disease. Mild improvement in retroperitoneal and pelvic adenopathy. Persistent right hydronephrosis possibly secondary to ureteral stricture. At that time, patient and patients wished to continue treatment, not agreeable to hospice. Plan: Patient agreeable to palliative care consultation for further recommendations of pain management He has been resistant to hospice discussions in the past Transitioned to DNR CCA DO NOT INTUBATE Goals of care and treatment options will continue to be an ongoing discussion, if clinical condition improves he has other options for treatment including cabazitaxel or [facility] referral for clinical trial discussion Further follow up as outpatient Oncology: Subj Interval history: Patient examined at bedside, he was ambulating in room upon entering. States this is the best he has felt in a long time, pain is under good control with MS Contin. He has just finished bathing. Denies fever, chill or any s/s infection. No nausea or vomiting. He states that his diarrhea is beginning to firm. Of note, had a detailed discussion with in regards to Neupogen and indications for Neupogen, she has questions as to why patient is currently not receiving neupogen. I did discuss with patient that there is currently no indication for neupogen but would continue to consider if WBC count does not recover in expected time frame or if he develops any concerning sign or symptom of sepsis/infection at which case treatment would begin immediately including a number of other items (i.e. panculture, empiric ATB therapy, etc.). Although patients WBC count appears the same on our lab value, the actual calculation of his ANC shows a slight improvement (exact ANC count 176 yesterday versus 216 today). Patients seemed understandably distressed over patients high risk for infection, there was also a misunderstanding that neupogen was not being started due to cost and I assured patient and patients that this most definitely was not the case and that we only have patients best interest in mind. Patients voices understanding, she wishes to discuss further with Dr. Ronal mcclendon. - Constitutional General appearance: cooperative, no acute distress, no febrile - Head Head exam: Present: atraumatic - ENT ENT exam: Present: mucous membranes moist, normal oropharynx - Respiratory Respiratory exam: Present: decreased breath sounds, CTAB. Absent: respiratory distress - Cardiovascular Cardiovascular exam: Present: RRR, +S1, +S2 - GI/Abdominal GI/Abdominal exam: Present: normal bowel sounds, soft. Absent: guarding, rebound, tenderness Additional comments: slightly distended - Extremities Exam Extremities exam: Absent: calf tenderness Additional comments: bilateral pitting edema 1+ R>L - Neurological Exam Neurological exam: Present: alert, oriented X3, no focal deficits, strengths equal and symetr throughout - Psychiatric Psychiatric exam: Present: normal affect, normal mood - Skin Skin exam: Present: dry, intact, normal color, warm Oncology: Obj Data - Labs CBC & Chem 7: 03/13/18 05:24 03/13/18 05:24 Consult Discharge Plan - Plan Referrals: NONE,PCP [Primary Care Provider] - Inpatient Charges Provider: Dr. Mary Villeda <Preeti Villeda S - Last Filed: 03/13/18 18:14> Date of Encounter: 03/13/18 Oncology: Obj Data - Labs CBC & Chem 7: 03/13/18 05:24 03/13/18 05:24 Inpatient Charges Provider: Dr. Mary Villeda Follow up - Inpatient: [id number] - Attending Attestation I examined this patient and my medical decision-making was reviewed with the Advanced Practice Nurse. I agree with the documented findings, disposition and treatment plan as described except to the extent set forth below. 1. Castrate resistant metastatic prostate cancer. CT scan abdomen and pelvis done on 02/28/2018 and 03/11/2018 showed multiple low-density lesions in the liver left lobe about 2 cm and rest of them are 1-1.5 cm. Discussed in the tumor board. This may be a small to biopsy. These were new compared to prev ious scans There is PSA progression . PSA went from 5 to currently 12. Retroperitoneal adenopathy is only minimal and is under good control. Mild progression of right hydronephrosis. With the liver lesions there is a concern for small cell transformation. May consider PET scan as an outpatient. We will also see if he wants to go to [facility] for second opinion. 2. Pain control adequate current pain management. 3. Neutropenia. His last Taxotere was 03/03/2018. He is in the timeframe for neutropenia. But family's consent about sepsis. Neupogen 300 g subcutaneous daily. Had a long discussion with him. His neutropenia with should recover shortly
[2018-03-13] MEDS ORDERED: traZODone 50 MG TABLET PO SCH (21:30)
[2018-03-14] MEDS: *HR* OxyCODONE Immed Rel 15 MG TABLET PO PRN ×2 (03:41→08:18)
[2018-03-14 06:39] LABS: Mean Platelet Volume 9.8 fL (9.4-12.4)
[2018-03-14 06:40] LABS: Basophils # 0.1 K/mcL (0.0-0.2); Hematocrit 37.3 % (37.5-50.1); Hemoglobin 12.3 g/dL (12.9-16.9); Lymphocytes # 0.5 K/mcL (0.6-4.6); Mean Corpuscular Hemoglobin 30.8 pg (28.0-33.3); Mean Corpuscular Volume 93.3 fL (83.0-100.0); Platelet Count 261 K/mcL (140-400); Red Cell Distribution Width 17.3 % (11.5-14.5)
[2018-03-14 08:03] LABS: Monocytes # 0.3 K/mcL (0.0-1.3); Neutrophils # 0.4 K/mcL (1.6-8.9)
[2018-03-14 08:04] LABS: Platelet Estimate Normal (Normal)
[2018-03-14] MEDS: predniSONE 5 MG TABLET PO SCH (08:13)
[2018-03-14] MEDS: Magic Mouthwash 10 ML UD Cup PO SCH ×2 (08:13→11:19)
[2018-03-14] MEDS: Furosemide 40 MG TABLET PO SCH (08:13)
[2018-03-14] MEDS: Apixaban 5 MG TABLET PO SCH (08:13)
[2018-03-14] MEDS: *HR* Morphine Sulfate SR (12 HR) 30 MG TABLET.ER PO SCH (08:13)
--- NOTE | 2018-03-14 09:13 | Palliative Progress Note ---
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 Utilized Oxycodone x3 last 24 hours. Prescription has been completed for discharge. (2) Goals of care, counseling/discussion Current Visit: Yes Status: Acute Assessment and plan: Patient will not have any discharge needs. Code status established and adv directives done. Pain better controlled. Palliative will sign off, please call if needed. (3) Prostate cancer metastatic to liver Current Visit: Yes Status: Acute (4) Acute diarrhea Current Visit: Yes Status: Acute - Time Spent With Patient Total time spent is greater than 50% in coordination of care (as documented) at patient's floor/unit and/or counseling patient: - Subjective Interval history: Patient awake and up in chair. Asking me to call physician to see if he can be discharged. Pain still under good control and states he feels better than he bustamante s in a while. No family present. - Constitutional Vitals: Abnormal lab results WBC 1.2 K/mcL (4.3-11.1) L 03/14/18 04:34 RBC 4.00 M/mcL (4.19-5.50) L 03/14/18 04:34 Hgb 12.3 g/dL (12.9-16.9) L 03/14/18 04:34 Hct 37.3 % (37.5-50.1) L 03/14/18 04:34 RDW 17.3 % (11.5-14.5) H 03/14/18 04:34 Band Neutrophils % 12.0 % (0-4) H 03/14/18 04:34 Neutrophils # 0.4 K/mcL (1.6-8.9) L 03/14/18 04:34 Lymphocytes # 0.5 K/mcL (0.6-4.6) L 03/14/18 04:34 Large Platelets Present (Not Present) A 03/13/18 05:24 Hypochromasia Present (Not Present) A 03/13/18 05:24 Anisocytosis 1+ (Not Present) A 03/13/18 05:24 Microcytosis Present (Not Present) A 03/13/18 05:24 Macrocytosis Present (Not Present) A 03/12/18 04:57 PT 13.6 Seconds (9.4-12.1) H 03/11/18 12:23 Sodium 134 mEq/L (136-145) L 03/13/18 05:24 Glucose 146 mg/dL (70-105) H 03/13/18 05:24 AST 12 Units/L (13-39) L 03/11/18 12:23 Lipase 5 Units/L (11-82) L 03/11/18 12:23 Ur Specific [place] > 1.030 (1.010-1.025) H 03/11/18 18:27 General appearance: Present: no acute distress - Respiratory Respiratory exam: Present: decreased breath sounds, CTAB - Cardiovascular Cardiovascular exam: Present: +S1, +S2 - GI/Abdominal GI/Abdominal exam: Present: normal bowel sounds, soft - Extremities Exam Extremities exam: Present: normal capillary refill, normal inspection - Neurological Exam Neurological exam: Present: alert, oriented X3, strengths equal and symetr throughout - Skin Skin exam: Present: dry, warm Palliative Quality Palliative Quality: Screen for Code Status: Yes, Screen for Goals of Care: Yes, Screen for Pain: Yes, If Pain Regimen Started, Initiate Bowel Regimen: NA (diarrhea), Screen for Nausea/Vomitting: Yes Code Status: 03/11/18 14:59 Resuscitation Status: Active [RES] Routine Comment: Resuscitation Status: [id number] - Labs CBC & Chem 7: 03/14/18 04:34 03/13/18 05:24 Labs: Laboratory Results - last 24 hr 03/14/18 04:34 WBC 1.2 L RBC 4.00 L Hgb 12.3 L Hct 37.3 L MCV 93.3 MCH 30.8 MCHC 33.0 RDW 17.3 H Plt Count 261 MPV 9.8 Seg Neutrophils % 18.0 Band Neutrophils % 12.0 H Lymphocytes % 40.0 Monocytes % 26.0 Basophils % 4.0 Neutrophils # 0.4 L Lymphocytes # 0.5 L Monocytes # 0.3 Basophils # 0.1 Platelet Estimate Normal - ABG Interpretation ABG results: PT/INR, D-dimer PT 13.6 Seconds (9.4-12.1) H 03/11/18 12:23 Consult Discharge Plan - Plan Referrals: NONE,PCP [Primary Care Provider] -
[2018-03-14 10:56] VITALS: BP 117/73
--- NOTE | 2018-03-14 11:11 | Discharge Summary ---
- NOTES TO OUTPATIENT PROVIDER Notes to Outpatient Provider: f/u with PCP in one week. f/u with Heme Onc Dr. Villeda as scheduled. Please go for CBC on Saturday. Please take Nystatin solution QID for your throat pain for 7 more days Orders not resulted at time of discharge: Pending orders 03/11/18 16:51 Culture,Blood [BC] Routine Date of Encounter: 03/14/18 Time of Encounter: 11:09 - Discharge Diagnosis (1) Neutropenia Priority: Primary Status: Acute Qualifiers: Neutropenia type: secondary to cancer chemotherapy Qualified Code(s): D70.1 - Agranulocytosis secondary to cancer chemotherapy; T45.1X5A - Adverse effect of antineoplastic and immunosuppressive drugs, initial encounter (2) Esophagitis Priority: Primary Status: Acute (3) Acute diarrhea Priority: Primary Status: Acute (4) Cancer associated pain Priority: Secondary Status: Acute (5) Intractable pain Priority: Secondary Status: Acute (6) Oral thrush Priority: Secondary Status: Acute (7) Prostate cancer Priority: Secondary Status: Chronic Hospital course: Mr. Bernstein is a 52 y/o M with known PMH of metastatic pancreatic cancer who have been having profuse watery diarrhea, severe neutropenia, dysphagia pt who was started on Cipro and Flagyl prophylactically for diarrhea by Heme Onc , now he presented to the emergency room with worsening weakness, lethargic and fatigue. He seems to be having severe neutropenia with ANC at 286. He did receive his last chemo on 03/03/18 He denied any fever / chills. He was admitted in the hospital and started on PO Nystatin. His dysphagia improved. Tolerating PO intake well. Pt was evaluated by Palliative care, pt and family requested for DNR/ DNI comfort care, however do not want to go for hospice care yet. He was evaluated by Heme Onc, pt wanted to try another chemo therapy. His ANC started improving slowly. He remained afebrile. His blood cx. urine cx, sputum cx were all negative. his ANC today @ 360. Will d/c him home in stable condition. His pain management [place] he was started on MS contin 30mg Q8H + Oxycodone 30mg Q6hr PRN for break through pain. Heme Onc / Pain management Dr. Marshall will take care of pain meds as an out pt. - Time Spent with Patient Total time spent providing and/or coordinating discharge services: - Discharge Medications Prescriptions: Nystatin [Nystatin Suspension] 100,000 units PO QID 7 Days #120 ml Home Medications: Cyanocobalamin (B-12) [Vitamin B12] 1,000 mcg IM QMONTH 08/31/17 [History] OxyCODONE Immed Rel [Roxicodone 30 MG] 30 mg PO QID PRN 08/31/17 [History] Prochlorperazine Maleate [Compazine] 10 mg PO Q6H PRN #30 tablet 02/06/18 [Rx] Tamsulosin [Flomax] 1 tab PO BID #60 cap.er.24h 02/07/18 [Rx] Apixaban [Eliquis] 5 mg PO BID #60 tablet 02/10/18 [Rx] Furosemide [Lasix] 40 mg PO DAILY #30 tablet 03/03/18 [Rx] Omeprazole [PriLOSEC] 20 mg PO BIDAC #60 cap 03/03/18 [Rx] Potassium Chloride 20 meq PO DAILY #30 tab.er.prt 03/03/18 [Rx] Albuterol Neb [AccuNeb] 1.25 mg IH BID PRN 03/11/18 [History] Dronabinol [Marinol] 5 mg PO BID 03/11/18 [History] Trazodone HCl 150 mg PO HS 03/11/18 [History] predniSONE [PredniSONE] 5 mg PO BID 03/11/18 [History] Morphine Sulfate SR (12 HR) [MS Contin] 30 mg PO Q8HR tablet.er 03/14/18 [Rx] Nystatin [Nystatin Suspension] 100,000 units PO QID 7 Days #120 ml 03/14/18 [Rx] Allergies/Adverse Reactions: Allergy/AdvReac Type Severity Reaction Status Date / Time No Known Allergies Allergy Verified 03/10/18 11:46 Date of admission: 03/11/18 16:57 Primary care physician: PCP NONE Consults: 03/11/18 15:07 Consult to Oncology Hematology [CONS] Routine Consulting Provider: Preeti Villeda Reason for Consult: History of metastatic prostate cancer on chemo. Time Notified: 15:08 Call Completed: Yes 03/11/18 15:14 Consult to Palliative Care [CONS] Routine Comment: Consulting Provider: Palliative Care Adrianna Reason for Consult: History of metastatic prostate cancer. Consult for pain management. Time Notified: 15:14 Call Completed: Yes 03/11/18 18:17 Consult to Pastoral Services [CONS] Routine Comment: - Constitutional Vitals: Temp Pulse Resp BP Pulse Ox 98.0 F 110 18 117/73 98 03/14/18 10:51 03/14/18 10:51 03/14/18 10:51 03/14/18 10:51 03/14/18 10:51 General appearance: Present: A&O X 3, no acute distress, answers questions appropriately Exam: Gen: Alert, awake, Oriented to time,place and person HEENT: Improving oral thrush Chest: Diminished breath sounds B/L, No wheezing, No crackles, No rales Heart: S1S2+ RRR No murmurs Abd: Soft, NT, BS +, No organomegaly Ext: Trace edema, pulses are palpable, No calf tenderness Neuro : Benign findings Skin: No rash. - Patient Status Disposition: Home, Self-Care Condition: Good Overall status at discharge: patient is back to baseline - Discharge Instructions Instructions: Pharmacological Management of Cancer Pain (DC), Non- pharmacological Management of Cancer Pain (DC) Follow Up With: Preeti Villeda MD [Partnered Physician] - 03/21/18 2:30 pm (Please follow up as schedule...) NONE,PCP [Primary Care Provider] - Forms: ED Satisfaction Letter
== END 2018-03-14 11:39 | disposition home or self-care (01) | DRG 809 ==
LOC: EMEROOARM 12:09 → 2ANU 12:09 → SUATTDRO 16:57
PROVIDERS: ADMIT Internal Medicine; ATTEND Family Medicine